=== PATIENT | male | born 1965 | race Caucasian/White ===

== ENCOUNTER 2023-04-13 04:09 | Inpatient (IN) | payer OTHER ==
[2023-04-13] MEDS ORDERED: AMOXICILLIN 500 MG CAPSULE (FP) PO ONE (05:50)
[2023-04-13] MEDS ORDERED: KETOROLAC TROMETHAMINE 30 MG/1 ML VIAL IVPUSH ONE (05:50)
[2023-04-13] MEDS ORDERED: AMOX TR/POT CLAV 500MG/125MG TABLETS (FP) ONE (06:11)
[2023-04-13] MEDS ORDERED: KETOROLAC TROMETHAMINE 30 MG/1 ML VIAL ONE (06:11)
[2023-04-13 08:21] LABS: HEMATOCRIT 29.1 % (35.4-49); MCH 29.4 pg (25.7-33.7); MCHC 34.3 g/dl (32.0-35.9); MEAN CELL VOLUME 85.8 fl (80-96); MEAN PLT VOLUME 7.2 fl (7.5-11.1); PLATELET COUNT 174 10^3/uL (134-434); RBC 3.39 M/mm3 (4.00-5.60); RDW 14.6 % (11.9-15.9); WHITE BLOOD COUNT 8.3 K/mm3 (4.0-10.0)
[2023-04-13 08:35] LABS: INR 1.33 (0.83-1.09); PROTHROMBIN TIME (PATIENT) 15.4 SEC (9.7-13.0)
[2023-04-13 09:22] LABS: ANISOCYTOSIS 0; MACROCYTOSIS 0
[2023-04-13 10:34] LABS: EPITHELIAL CELLS 9 /hpf
[2023-04-13 10:35] LABS: AMORP PHOS NONE SEEN /hpf (NONE SEEN); AMORP URATES NONE SEEN /hpf (NONE SEEN); CALCIUM OXALATE CRYSTALS NONE SEEN /hpf (NONE SEEN); TRIPLE PHOSPHATE CRYSTAL NONE SEEN /hpf (NONE SEEN); URIC ACID CRYSTALS NONE SEEN /hpf (NONE SEEN); URINE HYALINE CAST 0-1 /lpf
[2023-04-13] MEDS: CEFAZOLIN 1 GM in DEXTROSE 5%-WATER - 50 ML IVPB SCH ×2 (10:53→17:34)
[2023-04-13] MEDS: ACETAMINOPHEN 325 MG TABLET (FP) PO SCH ×3 (10:54→21:36)
[2023-04-13] MEDS: ENOXAPARIN NA (PORCINE) 40 MG/0.4 ML DISP.SYRIN SQ SCH ×2 (10:54→12:07)
[2023-04-13 11:19] LABS: ALBUMIN 3.2 g/dl (3.4-5.0); BILIRUBIN,TOTAL 0.8 mg/dL (0.2-1); BLOOD UREA NITROGEN 32.5 mg/dL (7-18); CALCIUM 12.9 mg/dL (8.5-10.1); CREATININE 1.7 mg/dL (0.55-1.3); POTASSIUM 4.1 mmol/L (3.5-5.1); TOT PROT 6.5 g/dl (6.4-8.2)
[2023-04-13] MEDS: MAG HYDROX/ALH/SMC/DPHA/LIDO 240 ML MOUTHWASH MM SCH ×3 (12:56→23:30)
[2023-04-13] MEDS: LACTATED RINGERS SOLUTION 1,000 ML/1,000 ML INFUS.BAG IV SCH ×2 (12:57→23:30)
[2023-04-13] MEDS: IBUPROFEN 600 MG TABLET (FP) PO SCH ×3 (12:57→23:30)
[2023-04-13 15:54] LABS: PHENCYCLIDINE,URINE NEGATIVE (NEGATIVE); URINE BARBITURATES NEGATIVE (NEGATIVE); URINE BENZODIAZEPINES NEGATIVE (NEGATIVE)
[2023-04-13 16:09] LABS: COCAINE, UR POSITIVE (NEGATIVE); METHADONE, UR NEGATIVE (NEGATIVE); OPIATES, URI NEGATIVE (NEGATIVE); URINE AMPHETAMINES NEGATIVE (NEGATIVE)
[2023-04-13] MEDS ORDERED: REFRIGERATED ANITBIOTICS ONE (21:29)
[2023-04-14] MEDS: CEFAZOLIN 1 GM in DEXTROSE 5%-WATER - 50 ML IVPB SCH ×3 (01:10→17:37)
[2023-04-14] MEDS: IBUPROFEN 600 MG TABLET (FP) PO SCH ×3 (05:55→17:35)
[2023-04-14] MEDS: MAG HYDROX/ALH/SMC/DPHA/LIDO 240 ML MOUTHWASH MM SCH ×3 (06:10→17:36)
[2023-04-14] MEDS: ACETAMINOPHEN 325 MG TABLET (FP) PO SCH (06:11)
[2023-04-14 07:06] LABS: CARCINOEMBRYONIC ANTIGEN 4.2 ng/mL (0.0-4.7)
[2023-04-14 08:24] LABS: HEMOGLOBIN 9.3 G/dL (11.7-16.9); MCH 28.9 pg (25.7-33.7); MEAN CELL VOLUME 87.4 fl (80-96); MEAN PLT VOLUME 7.7 fl (7.5-11.1); PLATELET COUNT 134.4 10^3/uL (134-434); RDW 15.7 % (11.9-15.9); WHITE BLOOD COUNT 4.3 10^3/uL (4.0-10.8)
[2023-04-14 08:59] LABS: BLOOD UREA NITROGEN 37.2 mg/dl (7-18); CALCIUM 11.3 mg/dl (8.5-10.1); CREATININE 1.7 mg/dl (0.6-1.3); POTASSIUM 3.7 mmol/L (3.5-5.1)
[2023-04-14] MEDS: traMADol HCL 50 MG TABLET PO PRN ×2 (10:18→21:57)
[2023-04-14] MEDS: CHOLECALCIFEROL (VIT D3) 1,000 UNIT (25 MCG) TABLET PO SCH (10:19)
[2023-04-14] MEDS: NICOTINE 7 MG/24 HOURS TOPICAL PATCH TD SCH (10:19)
[2023-04-14] MEDS: ENOXAPARIN NA (PORCINE) 40 MG/0.4 ML DISP.SYRIN SQ SCH (12:01)
[2023-04-14] MEDS: LIDOCAINE 5% TOPICAL PATCH TP SCH (13:34)
[2023-04-14] MEDS ORDERED: REFRIGERATED ANITBIOTICS ONE ×3 (14:38→21:33)
[2023-04-14] MEDS: LIDOCAINE PATCH REMOVAL MC SCH (22:52)
[2023-04-15] MEDS: MAG HYDROX/ALH/SMC/DPHA/LIDO 240 ML MOUTHWASH MM SCH ×3 (00:52→16:21)
[2023-04-15] MEDS: IBUPROFEN 600 MG TABLET (FP) PO SCH ×3 (02:17→16:21)
[2023-04-15] MEDS: CEFAZOLIN 1 GM in DEXTROSE 5%-WATER - 50 ML IVPB SCH ×3 (02:17→19:00)
[2023-04-15 08:18] LABS: INR 1.3 (0.83-1.09)
[2023-04-15 08:24] LABS: HEMATOCRIT 28.1 % (35.4-49); HEMOGLOBIN 9.4 G/dL (11.7-16.9); MCH 29.4 pg (25.7-33.7); MCHC 33.4 g/dl (32.0-35.9); MEAN CELL VOLUME 88.1 fl (80-96); MEAN PLT VOLUME 7.9 fl (7.5-11.1); PLATELET COUNT 164.3 10^3/uL (134-434); RBC 3.19 10^6/uL (4.00-5.60); RDW 15.9 % (11.9-15.9); WHITE BLOOD COUNT 5.9 10^3/uL (4.0-10.8)
[2023-04-15 09:04] LABS: BLOOD UREA NITROGEN 35.4 mg/dl (7-18); CALCIUM 11.5 mg/dl (8.5-10.1); CREATININE 1.5 mg/dl (0.6-1.3); POTASSIUM 4.2 mmol/L (3.5-5.1)
[2023-04-15] MEDS: NICOTINE 7 MG/24 HOURS TOPICAL PATCH TD SCH (09:13)
[2023-04-15] MEDS: CHOLECALCIFEROL (VIT D3) 1,000 UNIT (25 MCG) TABLET PO SCH (09:13)
[2023-04-15] MEDS: LIDOCAINE 5% TOPICAL PATCH TP SCH (09:13)
[2023-04-15] MEDS ORDERED: MIDAZOLAM HCL 2 MG/2 ML SINGLE DOSE VIAL ONE (09:33)
[2023-04-15] MEDS ORDERED: FENTANYL CITRATE/PF 50 MCG/ML VIAL ONE (09:34)
[2023-04-15] MEDS: MIDAZOLAM HCL 2 MG/2 ML SINGLE DOSE VIAL IVPB SCH ×2 (12:00→12:10)
[2023-04-15] MEDS: FENTANYL CITRATE/PF 50 MCG/ML VIAL IVPB SCH ×2 (12:00→12:10)
[2023-04-15] MEDS ORDERED: SODIUM CHLORIDE 500 ML IV ONE (13:45)
[2023-04-15] MEDS ORDERED: SODIUM CHLORIDE 1,000 ML IV SCH (14:30)
[2023-04-15] MEDS: SODIUM CHLORIDE 1,000 ML IV SCH (15:33)
[2023-04-15] MEDS ORDERED: ACETAMINOPHEN 325 MG TABLET (FP) ONE (17:21)
[2023-04-15] MEDS: ACETAMINOPHEN 325 MG TABLET (FP) PO PRN (17:27)
[2023-04-15] MEDS ORDERED: ceFAZolin SODIUM 1 GM VIAL ONE (19:07)
[2023-04-15] MEDS: LIDOCAINE PATCH REMOVAL MC SCH (22:07)
[2023-04-16] MEDS: traMADol HCL 50 MG TABLET PO PRN ×4 (01:32→23:22)
[2023-04-16] MEDS: CEFAZOLIN 1 GM in DEXTROSE 5%-WATER - 50 ML IVPB SCH ×3 (01:42→17:43)
[2023-04-16] MEDS: MAG HYDROX/ALH/SMC/DPHA/LIDO 240 ML MOUTHWASH MM SCH ×3 (02:28→18:23)
[2023-04-16] MEDS: NICOTINE 7 MG/24 HOURS TOPICAL PATCH TD SCH (09:30)
[2023-04-16] MEDS: CHOLECALCIFEROL (VIT D3) 1,000 UNIT (25 MCG) TABLET PO SCH (09:36)
[2023-04-16] MEDS ORDERED: TAMSULOSIN HCL 0.4 MG CAP PO ONE (10:10)
[2023-04-16] MEDS: FINASTERIDE 5 MG TABLET (FP) PO SCH (12:04)
[2023-04-16 12:31] LABS: HEMATOCRIT 27.5 % (35.4-49); HEMOGLOBIN 9.6 GM/dL (11.7-16.9); MCH 29.9 pg (25.7-33.7); MCHC 34.8 g/dl (32.0-35.9); MEAN CELL VOLUME 85.8 fl (80-96); MEAN PLT VOLUME 6.8 fl (7.5-11.1); PLATELET COUNT 190 10^3/uL (134-434); RDW 14.8 % (11.9-15.9); WHITE BLOOD COUNT 7.6 K/mm3 (4.0-10.0)
[2023-04-16 13:02] LABS: ANISOCYTOSIS 0; HELMET CELLS 0; HOWELL-JOLLY BODIES 0; MACROCYTOSIS 0; OVALOCYTE 0; ROULEAU 0; SICKELED CELLS 0; TARGET CELLS 0; TEAR DROP CELLS 0; TOXIC GRANULATION 0
[2023-04-16 13:28] LABS: POTASSIUM 3.7 mmol/L (3.5-5.1)
[2023-04-16 13:30] LABS: BLOOD UREA NITROGEN 27.4 mg/dL (7-18)
[2023-04-16 13:34] LABS: BILIRUBIN,TOTAL 0.4 mg/dL (0.2-1); CREATININE 1.5 mg/dL (0.55-1.3); TOT PROT 6.4 g/dl (6.4-8.2)
[2023-04-16 13:45] LABS: CALCIUM 10.9 mg/dL (8.5-10.1)
[2023-04-16] MEDS: SODIUM CHLORIDE 1,000 ML IV SCH (14:34)
[2023-04-16] MEDS: LIDOCAINE 5% TOPICAL PATCH TP SCH (14:35)
[2023-04-16 18:12] LABS: FREE KAPPA,SERUM 27.2 mg/L (3.3-19.4)
[2023-04-16] MEDS: LIDOCAINE PATCH REMOVAL MC SCH (22:02)
[2023-04-17] VITALS: BMI 25.8
[2023-04-17] MEDS: MAG HYDROX/ALH/SMC/DPHA/LIDO 240 ML MOUTHWASH MM SCH ×4 (00:22→18:24)
[2023-04-17] MEDS: CEFAZOLIN 1 GM in DEXTROSE 5%-WATER - 50 ML IVPB SCH ×3 (01:00→18:21)
[2023-04-17] MEDS: ACETAMINOPHEN 325 MG TABLET (FP) PO PRN ×2 (01:11→18:22)
[2023-04-17] MEDS: SODIUM CHLORIDE 1,000 ML IV SCH ×2 (03:36→14:44)
[2023-04-17] MEDS: traMADol HCL 50 MG TABLET PO PRN ×3 (06:06→21:44)
[2023-04-17 07:45] LABS: HEMOGLOBIN 8.7 GM/dL (11.7-16.9); MCH 29.7 pg (25.7-33.7); MCHC 34.6 g/dl (32.0-35.9); MEAN CELL VOLUME 85.6 fl (80-96); MEAN PLT VOLUME 7.1 fl (7.5-11.1); PLATELET COUNT 152 10^3/uL (134-434); RBC 2.92 M/mm3 (4.00-5.60); RDW 14.8 % (11.9-15.9); WHITE BLOOD COUNT 7.4 K/mm3 (4.0-10.0)
[2023-04-17 08:19] LABS: POTASSIUM 4.2 mmol/L (3.5-5.1)
[2023-04-17 08:55] LABS: CALCIUM 11.1 mg/dL (8.5-10.1); PHOSPHOROUS 3.2 mg/dL (2.5-4.9)
[2023-04-17 08:56] LABS: ALBUMIN 2.7 g/dl (3.4-5.0); BILIRUBIN,TOTAL 0.3 mg/dL (0.2-1); BLOOD UREA NITROGEN 24.4 mg/dL (7-18); MAGNESIUM 1.8 mg/dL (1.8-2.4); TOT PROT 5.7 g/dl (6.4-8.2)
[2023-04-17 08:59] LABS: CREATININE 1.4 mg/dL (0.55-1.3)
[2023-04-17 09:10] LABS: ANISOCYTOSIS 0; MACROCYTOSIS 0
[2023-04-17] MEDS: FINASTERIDE 5 MG TABLET (FP) PO SCH (10:27)
[2023-04-17] MEDS: CHOLECALCIFEROL (VIT D3) 1,000 UNIT (25 MCG) TABLET PO SCH (10:27)
[2023-04-17] MEDS: ENOXAPARIN NA (PORCINE) 40 MG/0.4 ML DISP.SYRIN SQ SCH (10:27)
[2023-04-17] MEDS: LIDOCAINE 5% TOPICAL PATCH TP SCH (10:27)
[2023-04-17] MEDS: NICOTINE 7 MG/24 HOURS TOPICAL PATCH TD SCH (10:27)
[2023-04-17] MEDS ORDERED: BENZOCAINE/MENTH/CETYLPYRD CL 1 EACH LOZENGE MM PRN (11:34)
[2023-04-17] MEDS: LIDOCAINE PATCH REMOVAL MC SCH (22:30)
[2023-04-18] MEDS: MAG HYDROX/ALH/SMC/DPHA/LIDO 240 ML MOUTHWASH MM SCH ×5 (00:07→21:38)
[2023-04-18] MEDS: CEFAZOLIN 1 GM in DEXTROSE 5%-WATER - 50 ML IVPB SCH ×3 (01:14→17:30)
[2023-04-18] MEDS: ACETAMINOPHEN 325 MG TABLET (FP) PO PRN ×2 (01:32→09:46)
[2023-04-18] MEDS: SODIUM CHLORIDE 1,000 ML IV SCH ×2 (01:34→15:56)
[2023-04-18] MEDS: traMADol HCL 50 MG TABLET PO PRN ×4 (05:40→23:06)
[2023-04-18 08:19] LABS: HEMATOCRIT 25.5 % (35.4-49); HEMOGLOBIN 9.2 GM/dL (11.7-16.9); MCH 30.1 pg (25.7-33.7); MCHC 35.9 g/dl (32.0-35.9); MEAN PLT VOLUME 7.1 fl (7.5-11.1); PLATELET COUNT 159 10^3/uL (134-434); RBC 3.04 M/mm3 (4.00-5.60); RDW 14.9 % (11.9-15.9); WHITE BLOOD COUNT 9.2 K/mm3 (4.0-10.0)
[2023-04-18 08:37] LABS: POTASSIUM 3.9 mmol/L (3.5-5.1)
[2023-04-18 08:43] LABS: ALBUMIN 2.6 g/dl (3.4-5.0); MAGNESIUM 1.7 mg/dL (1.8-2.4)
[2023-04-18 08:46] LABS: CREATININE 1.4 mg/dL (0.55-1.3)
[2023-04-18 08:49] LABS: BILIRUBIN,TOTAL 0.5 mg/dL (0.2-1); TOT PROT 5.7 g/dl (6.4-8.2)
[2023-04-18 10:17] LABS: ANISOCYTOSIS 2+; MACROCYTOSIS 0; OVALOCYTE 2+; TEAR DROP CELLS 2+
[2023-04-18] MEDS: ENOXAPARIN NA (PORCINE) 40 MG/0.4 ML DISP.SYRIN SQ SCH (11:06)
[2023-04-18] MEDS: CHOLECALCIFEROL (VIT D3) 400 UNIT (10 MCG) TABLET PO SCH (11:06)
[2023-04-18] MEDS: FINASTERIDE 5 MG TABLET (FP) PO SCH (11:06)
[2023-04-18] MEDS: NICOTINE 7 MG/24 HOURS TOPICAL PATCH TD SCH (11:07)
[2023-04-18] MEDS: LIDOCAINE 5% TOPICAL PATCH TP SCH (11:10)
[2023-04-18] MEDS ORDERED: ACETAMINOPHEN 1000 MG/100 ML BAG IVPB PRN (15:50)
[2023-04-19] MEDS: CEFAZOLIN 1 GM in DEXTROSE 5%-WATER - 50 ML IVPB SCH ×3 (01:55→17:41)
[2023-04-19] MEDS: MAG HYDROX/ALH/SMC/DPHA/LIDO 240 ML MOUTHWASH MM SCH ×5 (06:58→17:42)
[2023-04-19] MEDS: LIDOCAINE PATCH REMOVAL MC SCH (06:58)
[2023-04-19] MEDS: traMADol HCL 50 MG TABLET PO PRN ×3 (07:00→23:00)
[2023-04-19 08:11] LABS: HEMATOCRIT 25.3 % (35.4-49); HEMOGLOBIN 8.9 GM/dL (11.7-16.9); MCH 29.5 pg (25.7-33.7); MCHC 35.4 g/dl (32.0-35.9); MEAN CELL VOLUME 83.5 fl (80-96); MEAN PLT VOLUME 7.4 fl (7.5-11.1); PLATELET COUNT 164 10^3/uL (134-434); POTASSIUM 3.7 mmol/L (3.5-5.1); RBC 3.03 M/mm3 (4.00-5.60); RDW 15.3 % (11.9-15.9); WHITE BLOOD COUNT 8.8 K/mm3 (4.0-10.0)
[2023-04-19 08:15] LABS: CALCIUM 10.5 mg/dL (8.5-10.1)
[2023-04-19 08:17] LABS: ALBUMIN 2.6 g/dl (3.4-5.0); MAGNESIUM 1.7 mg/dL (1.8-2.4)
[2023-04-19 08:19] LABS: CREATININE 1.2 mg/dL (0.55-1.3); PHOSPHOROUS 2.6 mg/dL (2.5-4.9)
[2023-04-19 08:21] LABS: BILIRUBIN,TOTAL 0.4 mg/dL (0.2-1); TOT PROT 5.6 g/dl (6.4-8.2)
[2023-04-19] MEDS: FINASTERIDE 5 MG TABLET (FP) PO SCH (09:39)
[2023-04-19] MEDS: CHOLECALCIFEROL (VIT D3) 400 UNIT (10 MCG) TABLET PO SCH (09:39)
[2023-04-19] MEDS: ENOXAPARIN NA (PORCINE) 40 MG/0.4 ML DISP.SYRIN SQ SCH (09:39)
[2023-04-19] MEDS: NICOTINE 7 MG/24 HOURS TOPICAL PATCH TD SCH (09:39)
[2023-04-19] MEDS: LIDOCAINE 5% TOPICAL PATCH TP SCH (10:29)
[2023-04-19] MEDS ORDERED: MAGNESIUM SULF 50% (8.12 MEQ/2 ML-1 GM VIAL) IVPB ONE (12:40)
[2023-04-19 15:08] LABS: N-TERMINAL BNP 784.4 pg/ml (5-125)
[2023-04-19] MEDS: SODIUM CHLORIDE 1,000 ML IV SCH (17:41)
[2023-04-20] MEDS: traMADol HCL 50 MG TABLET PO PRN ×4 (04:00→22:48)
[2023-04-20] MEDS: CEFAZOLIN 1 GM in DEXTROSE 5%-WATER - 50 ML IVPB SCH ×3 (04:16→18:11)
[2023-04-20] MEDS: MAG HYDROX/ALH/SMC/DPHA/LIDO 240 ML MOUTHWASH MM SCH ×5 (04:18→23:50)
[2023-04-20] MEDS: LIDOCAINE PATCH REMOVAL MC SCH ×2 (04:19→22:52)
[2023-04-20 08:34] LABS: HEMATOCRIT 24.7 % (35.4-49); HEMOGLOBIN 8.6 GM/dL (11.7-16.9); MCH 29.7 pg (25.7-33.7); MEAN CELL VOLUME 84.7 fl (80-96); MEAN PLT VOLUME 7.1 fl (7.5-11.1); PLATELET COUNT 170 10^3/uL (134-434); RBC 2.91 M/mm3 (4.00-5.60); RDW 15.2 % (11.9-15.9)
[2023-04-20 08:51] LABS: POTASSIUM 3.7 mmol/L (3.5-5.1)
[2023-04-20 08:55] LABS: ALBUMIN 2.4 g/dl (3.4-5.0); CALCIUM 10.3 mg/dL (8.5-10.1)
[2023-04-20 08:56] LABS: BLOOD UREA NITROGEN 23.5 mg/dL (7-18); MAGNESIUM 1.6 mg/dL (1.8-2.4)
[2023-04-20 08:59] LABS: CREATININE 1.1 mg/dL (0.55-1.3); PHOSPHOROUS 2.6 mg/dL (2.5-4.9)
[2023-04-20 09:00] LABS: BILIRUBIN,TOTAL 0.4 mg/dL (0.2-1); TOT PROT 5.4 g/dl (6.4-8.2)
[2023-04-20] MEDS: ENOXAPARIN NA (PORCINE) 40 MG/0.4 ML DISP.SYRIN SQ SCH (10:02)
[2023-04-20] MEDS: CHOLECALCIFEROL (VIT D3) 400 UNIT (10 MCG) TABLET PO SCH (10:03)
[2023-04-20] MEDS: FINASTERIDE 5 MG TABLET (FP) PO SCH (10:03)
[2023-04-20] MEDS: NICOTINE 7 MG/24 HOURS TOPICAL PATCH TD SCH (10:07)
[2023-04-20] MEDS: LIDOCAINE 5% TOPICAL PATCH TP SCH (10:10)
[2023-04-20] MEDS ORDERED: POTASSIUM CHLORIDE ORAL LIQUID 20 MEQ/15 ML PO ONE (15:15)
[2023-04-20] MEDS ORDERED: FUROSEMIDE 40 MG/4 ML INJECTABLE VIAL IVPUSH ONE (15:15)
[2023-04-20] MEDS ORDERED: SODIUM CHLORIDE 1,000 ML IV SCH (15:15)
[2023-04-21] MEDS: CEFAZOLIN 1 GM in DEXTROSE 5%-WATER - 50 ML IVPB SCH ×3 (03:25→18:08)
[2023-04-21] MEDS: traMADol HCL 50 MG TABLET PO PRN ×4 (04:40→23:02)
[2023-04-21] MEDS: MAG HYDROX/ALH/SMC/DPHA/LIDO 240 ML MOUTHWASH MM SCH ×3 (06:49→18:08)
[2023-04-21 07:52] LABS: HEMATOCRIT 24.1 % (35.4-49); HEMOGLOBIN 8.7 GM/dL (11.7-16.9); MCH 30.4 pg (25.7-33.7); MCHC 36.2 g/dl (32.0-35.9); MEAN CELL VOLUME 83.9 fl (80-96); MEAN PLT VOLUME 7.2 fl (7.5-11.1); PLATELET COUNT 168 10^3/uL (134-434); RBC 2.87 M/mm3 (4.00-5.60); RDW 15.4 % (11.9-15.9); WHITE BLOOD COUNT 8.3 K/mm3 (4.0-10.0)
[2023-04-21 08:14] LABS: POTASSIUM 3.6 mmol/L (3.5-5.1)
[2023-04-21 08:17] LABS: ALBUMIN 2.4 g/dl (3.4-5.0); BLOOD UREA NITROGEN 25.8 mg/dL (7-18); CALCIUM 10.2 mg/dL (8.5-10.1); MAGNESIUM 1.5 mg/dL (1.8-2.4)
[2023-04-21 08:20] LABS: CREATININE 1.2 mg/dL (0.55-1.3); PHOSPHOROUS 2.9 mg/dL (2.5-4.9)
[2023-04-21 08:22] LABS: BILIRUBIN,TOTAL 0.4 mg/dL (0.2-1); TOT PROT 5.4 g/dl (6.4-8.2)
[2023-04-21 08:37] LABS: ANISOCYTOSIS 1+
[2023-04-21] MEDS: CHOLECALCIFEROL (VIT D3) 400 UNIT (10 MCG) TABLET PO SCH (09:58)
[2023-04-21] MEDS: FINASTERIDE 5 MG TABLET (FP) PO SCH (09:58)
[2023-04-21] MEDS: ENOXAPARIN NA (PORCINE) 40 MG/0.4 ML DISP.SYRIN SQ SCH (10:01)
[2023-04-21] MEDS: NICOTINE 7 MG/24 HOURS TOPICAL PATCH TD SCH (10:01)
[2023-04-21] MEDS: LIDOCAINE 4% PATCH TP SCH (10:50)
[2023-04-21] MEDS ORDERED: LIDOCAINE 5% TOPICAL PATCH TP SCH (11:00)
[2023-04-21] MEDS: LIDOCAINE 5% TOPICAL PATCH TP SCH (11:10)
[2023-04-21] MEDS ORDERED: MAGNESIUM SULF 50% (8.12 MEQ/2 ML-1 GM VIAL) IVPB ONE (11:51)
[2023-04-21] MEDS ORDERED: FUROSEMIDE 40 MG/4 ML INJECTABLE VIAL IVPUSH ONE ×2 (14:09→20:00)
[2023-04-21] MEDS ORDERED: SODIUM CHLORIDE 1,000 ML IV SCH (14:09)
[2023-04-21] MEDS: SODIUM CHLORIDE 0.45% 1,000 ML IV SCH (14:52)
[2023-04-21] MEDS: LIDOCAINE PATCH REMOVAL MC SCH (21:10)
[2023-04-22] MEDS: MAG HYDROX/ALH/SMC/DPHA/LIDO 240 ML MOUTHWASH MM SCH ×3 (00:19→11:57)
[2023-04-22] MEDS: CEFAZOLIN 1 GM in DEXTROSE 5%-WATER - 50 ML IVPB SCH ×2 (03:18→09:35)
[2023-04-22] MEDS: FUROSEMIDE 40 MG TABLET (FP) PO SCH ×2 (06:01→13:31)
[2023-04-22] MEDS: traMADol HCL 50 MG TABLET PO PRN ×2 (06:01→12:28)
[2023-04-22 07:00] LABS: HEMATOCRIT 24.7 % (35.4-49); HEMOGLOBIN 8.6 GM/dL (11.7-16.9); MCH 29.7 pg (25.7-33.7); MCHC 34.9 g/dl (32.0-35.9); MEAN CELL VOLUME 84.9 fl (80-96); MEAN PLT VOLUME 7.4 fl (7.5-11.1); PLATELET COUNT 180 10^3/uL (134-434); RBC 2.91 M/mm3 (4.00-5.60); RDW 15.4 % (11.9-15.9); WHITE BLOOD COUNT 8.7 K/mm3 (4.0-10.0)
[2023-04-22 07:10] LABS: POTASSIUM 3.4 mmol/L (3.5-5.1)
[2023-04-22 07:18] LABS: ALBUMIN 2.5 g/dl (3.4-5.0); BLOOD UREA NITROGEN 33.4 mg/dL (7-18); PHOSPHOROUS 2.9 mg/dL (2.5-4.9)
[2023-04-22 07:19] LABS: BILIRUBIN,TOTAL 0.3 mg/dL (0.2-1); TOT PROT 5.3 g/dl (6.4-8.2)
[2023-04-22 07:20] LABS: MAGNESIUM 1.8 mg/dL (1.8-2.4)
[2023-04-22 07:21] LABS: CREATININE 1.2 mg/dL (0.55-1.3)
[2023-04-22] MEDS: ENOXAPARIN NA (PORCINE) 40 MG/0.4 ML DISP.SYRIN SQ SCH (09:23)
[2023-04-22] MEDS: NICOTINE 7 MG/24 HOURS TOPICAL PATCH TD SCH (09:23)
[2023-04-22] MEDS: FINASTERIDE 5 MG TABLET (FP) PO SCH (09:35)
[2023-04-22] MEDS: LIDOCAINE 4% PATCH TP SCH (09:35)
[2023-04-22] MEDS: CHOLECALCIFEROL (VIT D3) 400 UNIT (10 MCG) TABLET PO SCH (09:36)
[2023-04-22 11:29] LABS: ANISOCYTOSIS 0; HELMET CELLS 0; HOWELL-JOLLY BODIES 0; MACROCYTOSIS 0; OVALOCYTE 0; ROULEAU 0; SICKELED CELLS 0; TARGET CELLS 0; TEAR DROP CELLS 0; TOXIC GRANULATION 0
[2023-04-22] MEDS ORDERED: KCL 10 MEQ IVPB 10 MEQ/100 ML INFUS.BAG IVPB SCH (14:15)
[2023-04-22] MEDS ORDERED: FENTANYL CITRATE/PF 50 MCG/ML VIAL ONE (16:10)
[2023-04-22] MEDS ORDERED: MIDAZOLAM HCL 2 MG/2 ML SINGLE DOSE VIAL ONE (16:11)
[2023-04-22] MEDS ORDERED: ceFAZolin SODIUM 1 GM VIAL IVPB ONE (16:42)
[2023-04-22] MEDS ORDERED: POTASSIUM CHLORIDE ORAL LIQUID 20 MEQ/15 ML PO ONE ×2 (17:18→20:00)
[2023-04-22] MEDS ORDERED: SODIUM CHLORIDE 0.45% 1,000 ML IV SCH ×2 (17:33→18:36)
[2023-04-22] MEDS ORDERED: traMADol HCL 50 MG TABLET PO PRN ×2 (17:33→18:36)
[2023-04-22] MEDS ORDERED: BENZOCAINE/MENTH/CETYLPYRD CL 1 EACH LOZENGE MM PRN ×2 (17:33→18:36)
[2023-04-22] MEDS ORDERED: MAG HYDROX/ALH/SMC/DPHA/LIDO 240 ML MOUTHWASH MM SCH (18:00)
[2023-04-22] MEDS ORDERED: ONDANSETRON 4 MG/2 ML VIAL IVPUSH PRN (18:13)
[2023-04-22] MEDS ORDERED: LACTATED RINGERS SOLUTION 1,000 ML IV SCH (18:15)
[2023-04-22] MEDS ORDERED: LIDOCAINE PATCH REMOVAL MC SCH (22:00)
[2023-04-22] MEDS: KCL 10 MEQ IVPB 10 MEQ/100 ML INFUS.BAG IVPB SCH ×2 (22:15→22:16)
[2023-04-23] MEDS: LIDOCAINE PATCH REMOVAL MC SCH ×2 (01:16→22:50)
[2023-04-23] MEDS ORDERED: CEFAZOLIN 1 GM in DEXTROSE 5%-WATER - 50 ML IVPB SCH (02:00)
[2023-04-23] MEDS: CEFAZOLIN 1 GM in DEXTROSE 5%-WATER - 50 ML IVPB SCH ×3 (02:13→17:39)
[2023-04-23] MEDS: MAG HYDROX/ALH/SMC/DPHA/LIDO 240 ML MOUTHWASH MM SCH ×4 (02:38→19:09)
[2023-04-23] MEDS ORDERED: FUROSEMIDE 40 MG TABLET (FP) PO SCH (06:00)
[2023-04-23] MEDS: FUROSEMIDE 40 MG TABLET (FP) PO SCH ×2 (06:27→16:50)
[2023-04-23] MEDS ORDERED: traMADol HCL 50 MG TABLET PO PRN (07:59)
[2023-04-23] MEDS: SODIUM CHLORIDE 0.45% 1,000 ML IV SCH (08:48)
[2023-04-23 09:28] LABS: BASO % 0.6 % (0-2.0); EOS % 0.7 % (0-4.5); HEMATOCRIT 27.6 % (35.4-49); HEMOGLOBIN 9.4 GM/dL (11.7-16.9); LYMPH % 12.3 % (8-40); MCH 29.4 pg (25.7-33.7); MCHC 34.1 g/dl (32.0-35.9); MEAN CELL VOLUME 86.2 fl (80-96); MEAN PLT VOLUME 7.4 fl (7.5-11.1); MONO % 6.6 % (3.8-10.2); NEUT % 79.8 % (42.8-82.8); PLATELET COUNT 215 10^3/uL (134-434); RDW 15.8 % (11.9-15.9); WHITE BLOOD COUNT 13.2 K/mm3 (4.0-10.0)
[2023-04-23 09:49] LABS: POTASSIUM 3.8 mmol/L (3.5-5.1)
[2023-04-23 09:54] LABS: CALCIUM 10.1 mg/dL (8.5-10.1)
[2023-04-23 09:55] LABS: ALBUMIN 2.7 g/dl (3.4-5.0); BLOOD UREA NITROGEN 29.9 mg/dL (7-18); MAGNESIUM 1.7 mg/dL (1.8-2.4)
[2023-04-23 09:58] LABS: CREATININE 1.4 mg/dL (0.55-1.3); PHOSPHOROUS 3.2 mg/dL (2.5-4.9)
[2023-04-23 09:59] LABS: BILIRUBIN,TOTAL 0.4 mg/dL (0.2-1)
[2023-04-23] MEDS ORDERED: ENOXAPARIN NA (PORCINE) 40 MG/0.4 ML DISP.SYRIN SQ SCH (10:00)
[2023-04-23] MEDS ORDERED: LIDOCAINE 4% PATCH TP SCH (10:00)
[2023-04-23] MEDS ORDERED: NICOTINE 7 MG/24 HOURS TOPICAL PATCH TD SCH ×3 (10:00→10:30)
[2023-04-23] MEDS ORDERED: FINASTERIDE 5 MG TABLET (FP) PO SCH (10:00)
[2023-04-23] MEDS ORDERED: CHOLECALCIFEROL (VIT D3) 400 UNIT (10 MCG) TABLET PO SCH (10:00)
[2023-04-23] MEDS: ENOXAPARIN NA (PORCINE) 40 MG/0.4 ML DISP.SYRIN SQ SCH (10:08)
[2023-04-23] MEDS: FINASTERIDE 5 MG TABLET (FP) PO SCH (10:09)
[2023-04-23] MEDS: CHOLECALCIFEROL (VIT D3) 400 UNIT (10 MCG) TABLET PO SCH (10:09)
[2023-04-23] MEDS: ACETAMINOPHEN 500 MG TABLET (FP) PO SCH ×3 (10:38→22:33)
[2023-04-23] MEDS: BICALUTAMIDE 50 MG TABLET (FP) PO SCH (10:39)
[2023-04-23] MEDS: NICOTINE 14 MG/24 HOURS TOPICAL PATCH TD SCH ×2 (10:39→10:43)
[2023-04-23] MEDS: LIDOCAINE 4% PATCH TP SCH (10:43)
[2023-04-23] MEDS ORDERED: MAGNESIUM 2GM/50ML STERILE WATER IVPB IVPB ONE ×3 (11:30→17:15)
[2023-04-23 11:47] LABS: ANISOCYTOSIS 0; HELMET CELLS 1+; MACROCYTOSIS 0
[2023-04-23] MEDS: oxyCODONE HCL 5 MG TABLET PO PRN (18:17)
[2023-04-24] MEDS: MAG HYDROX/ALH/SMC/DPHA/LIDO 240 ML MOUTHWASH MM SCH ×4 (00:36→18:47)
[2023-04-24] MEDS ORDERED: ceFAZolin SODIUM 1 GM VIAL ONE (01:36)
[2023-04-24] MEDS: CEFAZOLIN 1 GM in DEXTROSE 5%-WATER - 50 ML IVPB SCH ×3 (01:49→17:11)
[2023-04-24] MEDS: oxyCODONE HCL 5 MG TABLET PO PRN (03:43)
[2023-04-24] MEDS: FUROSEMIDE 40 MG TABLET (FP) PO SCH ×2 (06:31→14:26)
[2023-04-24] MEDS: ACETAMINOPHEN 500 MG TABLET (FP) PO SCH ×3 (06:31→21:31)
[2023-04-24 10:45] LABS: HEMATOCRIT 25.1 % (35.4-49); HEMOGLOBIN 8.6 GM/dL (11.7-16.9); MCH 29.7 pg (25.7-33.7); MCHC 34.5 g/dl (32.0-35.9); MEAN CELL VOLUME 86.1 fl (80-96); MEAN PLT VOLUME 7.4 fl (7.5-11.1); PLATELET COUNT 175 10^3/uL (134-434); RBC 2.91 M/mm3 (4.00-5.60); RDW 15.6 % (11.9-15.9); WHITE BLOOD COUNT 8.3 K/mm3 (4.0-10.0)
[2023-04-24] MEDS: CHOLECALCIFEROL (VIT D3) 400 UNIT (10 MCG) TABLET PO SCH (10:57)
[2023-04-24] MEDS: BICALUTAMIDE 50 MG TABLET (FP) PO SCH (10:57)
[2023-04-24] MEDS: ENOXAPARIN NA (PORCINE) 40 MG/0.4 ML DISP.SYRIN SQ SCH (10:57)
[2023-04-24] MEDS: LIDOCAINE 4% PATCH TP SCH (10:58)
[2023-04-24] MEDS: NICOTINE 14 MG/24 HOURS TOPICAL PATCH TD SCH (10:59)
[2023-04-24] MEDS: FINASTERIDE 5 MG TABLET (FP) PO SCH (10:59)
[2023-04-24 11:03] LABS: POTASSIUM 3.4 mmol/L (3.5-5.1)
[2023-04-24 11:08] LABS: ALBUMIN 2.7 g/dl (3.4-5.0); CALCIUM 9.5 mg/dL (8.5-10.1)
[2023-04-24 11:09] LABS: MAGNESIUM 2.2 mg/dL (1.8-2.4)
[2023-04-24 11:11] LABS: CREATININE 1.3 mg/dL (0.55-1.3)
[2023-04-24 11:12] LABS: PHOSPHOROUS 2.8 mg/dL (2.5-4.9); TOT PROT 5.7 g/dl (6.4-8.2)
[2023-04-24 11:15] LABS: ANISOCYTOSIS 0; HELMET CELLS 0; HOWELL-JOLLY BODIES 0; MACROCYTOSIS 0; OVALOCYTE 0; ROULEAU 0; SICKELED CELLS 0; TARGET CELLS 0; TEAR DROP CELLS 0; TOXIC GRANULATION 0
[2023-04-24 11:17] LABS: BILIRUBIN,TOTAL 0.3 mg/dL (0.2-1)
[2023-04-24] MEDS ORDERED: POTASSIUM CHLORIDE TABS 10 MEQ TABLET.ER (FP) PO ONE ×2 (15:00→17:15)
[2023-04-24] MEDS ORDERED: SODIUM CHLORIDE 1,000 ML IV SCH ×2 (15:15→16:46)
[2023-04-24] MEDS ORDERED: POTASSIUM CHLORIDE ORAL LIQUID 20 MEQ/15 ML PO NR ×2 (17:03→19:00)
[2023-04-24] MEDS ORDERED: POTASSIUM CHLORIDE ORAL LIQUID 20 MEQ/15 ML PO ONE (19:00)
[2023-04-24] MEDS: LIDOCAINE PATCH REMOVAL MC SCH (22:10)
[2023-04-25] MEDS: MAG HYDROX/ALH/SMC/DPHA/LIDO 240 ML MOUTHWASH MM SCH ×4 (00:49→18:26)
[2023-04-25] MEDS: CEFAZOLIN 1 GM in DEXTROSE 5%-WATER - 50 ML IVPB SCH ×2 (01:54→10:24)
[2023-04-25] MEDS: FUROSEMIDE 40 MG TABLET (FP) PO SCH (06:46)
[2023-04-25] MEDS: ACETAMINOPHEN 500 MG TABLET (FP) PO SCH ×3 (06:46→21:27)
[2023-04-25] MEDS ORDERED: INSULIN (NOVOLOG) ASPART 100 UNITS/ML 10ML VIAL ONE (06:58)
[2023-04-25] MEDS: BICALUTAMIDE 50 MG TABLET (FP) PO SCH (10:23)
[2023-04-25] MEDS: FINASTERIDE 5 MG TABLET (FP) PO SCH (10:24)
[2023-04-25] MEDS: CHOLECALCIFEROL (VIT D3) 400 UNIT (10 MCG) TABLET PO SCH (10:24)
[2023-04-25] MEDS: ENOXAPARIN NA (PORCINE) 40 MG/0.4 ML DISP.SYRIN SQ SCH (10:25)
[2023-04-25 10:35] LABS: POTASSIUM 3.9 mmol/L (3.5-5.1)
[2023-04-25] MEDS: oxyCODONE HCL 5 MG TABLET PO PRN ×2 (10:35→18:26)
[2023-04-25 10:37] LABS: CALCIUM 9.1 mg/dL (8.5-10.1)
[2023-04-25 10:38] LABS: ALBUMIN 2.8 g/dl (3.4-5.0); BLOOD UREA NITROGEN 28.9 mg/dL (7-18)
[2023-04-25 10:41] LABS: CREATININE 1.2 mg/dL (0.55-1.3)
[2023-04-25 10:43] LABS: BILIRUBIN,TOTAL 0.4 mg/dL (0.2-1)
[2023-04-25] MEDS: LIDOCAINE 4% PATCH TP SCH (10:46)
[2023-04-25] MEDS: NICOTINE 14 MG/24 HOURS TOPICAL PATCH TD SCH (10:47)
[2023-04-25] MEDS ORDERED: FERROUS SO4 325 MG TABLET (FP) PO SCH (12:30)
[2023-04-25] MEDS: LIDOCAINE PATCH REMOVAL MC SCH (21:52)
[2023-04-26] MEDS: MAG HYDROX/ALH/SMC/DPHA/LIDO 240 ML MOUTHWASH MM SCH ×4 (00:10→18:34)
[2023-04-26] MEDS: oxyCODONE HCL 5 MG TABLET PO PRN ×5 (00:13→22:52)
[2023-04-26] MEDS: ACETAMINOPHEN 500 MG TABLET (FP) PO SCH ×3 (05:22→22:12)
[2023-04-26] MEDS: FINASTERIDE 5 MG TABLET (FP) PO SCH (09:15)
[2023-04-26] MEDS: CHOLECALCIFEROL (VIT D3) 400 UNIT (10 MCG) TABLET PO SCH (09:15)
[2023-04-26] MEDS: ENOXAPARIN NA (PORCINE) 40 MG/0.4 ML DISP.SYRIN SQ SCH (09:15)
[2023-04-26] MEDS: BICALUTAMIDE 50 MG TABLET (FP) PO SCH (09:16)
[2023-04-26] MEDS: NICOTINE 14 MG/24 HOURS TOPICAL PATCH TD SCH (09:16)
[2023-04-26] MEDS: LIDOCAINE 4% PATCH TP SCH (09:16)
[2023-04-26 09:39] LABS: HEMATOCRIT 26.8 % (35.4-49); HEMOGLOBIN 9.1 GM/dL (11.7-16.9); MCH 29.4 pg (25.7-33.7); MEAN CELL VOLUME 86.6 fl (80-96); MEAN PLT VOLUME 7.4 fl (7.5-11.1); PLATELET COUNT 213 10^3/uL (134-434); RBC 3.09 M/mm3 (4.00-5.60)
[2023-04-26 10:01] LABS: IRON SERUM 69 ug/dL (50-175)
[2023-04-26 10:03] LABS: TOTAL IRON BINDING CAPACITY 185 ug/dL (250-450)
[2023-04-26 10:06] LABS: ANISOCYTOSIS 0; HELMET CELLS 0; HOWELL-JOLLY BODIES 0; MACROCYTOSIS 0; OVALOCYTE 0; ROULEAU 0; SICKELED CELLS 0; TARGET CELLS 0; TEAR DROP CELLS 0; TOXIC GRANULATION 0
[2023-04-26] MEDS: ENOXAPARIN NA (PORCINE) 80 MG/0.8 ML DISP.SYRIN SQ SCH ×2 (22:13→22:31)
[2023-04-26] MEDS: LIDOCAINE PATCH REMOVAL MC SCH (22:15)
[2023-04-27] MEDS: oxyCODONE HCL 5 MG TABLET PO PRN ×4 (04:09→22:51)
[2023-04-27] MEDS: MAG HYDROX/ALH/SMC/DPHA/LIDO 240 ML MOUTHWASH MM SCH ×4 (06:26→19:06)
[2023-04-27] MEDS: ACETAMINOPHEN 500 MG TABLET (FP) PO SCH ×3 (06:26→21:33)
[2023-04-27] MEDS: NICOTINE 14 MG/24 HOURS TOPICAL PATCH TD SCH (09:24)
[2023-04-27] MEDS: metoPROLOL SUCCINATE 25 MG TAB.SR.24H (FP) PO SCH (09:25)
[2023-04-27] MEDS: CHOLECALCIFEROL (VIT D3) 400 UNIT (10 MCG) TABLET PO SCH (09:25)
[2023-04-27] MEDS: LIDOCAINE 4% PATCH TP SCH (09:25)
[2023-04-27] MEDS: FINASTERIDE 5 MG TABLET (FP) PO SCH (09:25)
[2023-04-27] MEDS: ENOXAPARIN NA (PORCINE) 80 MG/0.8 ML DISP.SYRIN SQ SCH ×2 (09:26→21:32)
[2023-04-27] MEDS: BICALUTAMIDE 50 MG TABLET (FP) PO SCH (09:32)
[2023-04-27] MEDS: CEFTRIAXONE 1 GM in DEXTROSE 5%-WATER - 50 ML IVPB SCH (13:42)
[2023-04-27] MEDS ORDERED: FUROSEMIDE 40 MG TABLET (FP) PO ONE ×2 (16:37→17:15)
[2023-04-27] MEDS: LIDOCAINE PATCH REMOVAL MC SCH (23:32)
[2023-04-28] MEDS: MAG HYDROX/ALH/SMC/DPHA/LIDO 240 ML MOUTHWASH MM SCH ×4 (01:01→11:52)
[2023-04-28] MEDS: oxyCODONE HCL 5 MG TABLET PO PRN ×2 (03:08→07:45)
[2023-04-28] MEDS: ACETAMINOPHEN 500 MG TABLET (FP) PO SCH ×2 (05:56→13:57)
[2023-04-28 08:42] VITALS: BP 132/78; PULSE 94; RESP 16; TEMP 98.9
[2023-04-28] MEDS: NICOTINE 14 MG/24 HOURS TOPICAL PATCH TD SCH ×2 (09:05→09:12)
[2023-04-28] MEDS: CEFTRIAXONE 1 GM in DEXTROSE 5%-WATER - 50 ML IVPB SCH (09:05)
[2023-04-28] MEDS: FINASTERIDE 5 MG TABLET (FP) PO SCH (09:06)
[2023-04-28] MEDS: metoPROLOL SUCCINATE 25 MG TAB.SR.24H (FP) PO SCH (09:06)
[2023-04-28] MEDS: LIDOCAINE 4% PATCH TP SCH (09:06)
[2023-04-28] MEDS: CHOLECALCIFEROL (VIT D3) 400 UNIT (10 MCG) TABLET PO SCH (09:06)
[2023-04-28] MEDS: BICALUTAMIDE 50 MG TABLET (FP) PO SCH (09:07)
[2023-04-28] MEDS ORDERED: ENOXAPARIN NA (PORCINE) 40 MG/0.4 ML DISP.SYRIN SQ SCH (10:00)
[2023-04-28] MEDS ORDERED: traMADol HCL 50 MG TABLET PO PRN (11:19)
[2023-04-28 11:20] LABS: HEMATOCRIT 24.4 % (35.4-49); HEMOGLOBIN 8.4 GM/dL (11.7-16.9); MCHC 34.6 g/dl (32.0-35.9); MEAN CELL VOLUME 86.9 fl (80-96); PLATELET COUNT 206 10^3/uL (134-434); RBC 2.81 M/mm3 (4.00-5.60); RDW 16.7 % (11.9-15.9); WHITE BLOOD COUNT 4.2 K/mm3 (4.0-10.0)
[2023-04-28 11:32] LABS: POTASSIUM 4.1 mmol/L (3.5-5.1)
[2023-04-28 11:34] LABS: CALCIUM 7.8 mg/dL (8.5-10.1)
[2023-04-28 11:35] LABS: ALBUMIN 2.6 g/dl (3.4-5.0); BLOOD UREA NITROGEN 23.3 mg/dL (7-18)
[2023-04-28 11:38] LABS: CREATININE 1.1 mg/dL (0.55-1.3)
[2023-04-28] MEDS ORDERED: oxyCODONE HCL 5 MG TABLET PO PRN (11:38)
[2023-04-28 11:40] LABS: BILIRUBIN,TOTAL 0.3 mg/dL (0.2-1); TOT PROT 5.7 g/dl (6.4-8.2)
[2023-04-28 11:57] LABS: ANISOCYTOSIS 2+; MACROCYTOSIS 0; OVALOCYTE 1+
== END 2023-04-28 14:18 | disposition home or self-care (01) | DRG 482 ==
LOC: FER 04:09 → FM/S 08:22 → J2C 04-15 09:15 → J4W 04-15 20:36 → J6S 04-22 15:20
PROVIDERS: ADMIT Internal Medicine; ATTEND Internal Medicine
PROC: 07DR3ZX Extraction of Iliac Bone Marrow, Percutaneous Approach, Diagnostic (ICD-10-PCS; principal; 2023-04-15)
PROC: 0VB08ZZ Excision of Prostate, Via Natural or Artificial Opening Endoscopic (ICD-10-PCS; 2023-04-22)
DX: C61 Malignant neoplasm of prostate (principal); C78.7 Secondary malignant neoplasm of liver and intrahepatic bile duct; C79.51 Secondary malignant neoplasm of bone; C78.00 Secondary malignant neoplasm of unspecified lung; C77.2 Secondary and unspecified malignant neoplasm of intra-abdominal lymph nodes; M51.36 Other intervertebral disc degeneration, lumbar region; E83.52 Hypercalcemia; E78.5 Hyperlipidemia, unspecified; D63.0 Anemia in neoplastic disease; F14.10 Cocaine abuse, uncomplicated; F12.90 Cannabis use, unspecified, uncomplicated; F10.10 Alcohol abuse, uncomplicated; I11.0 Hypertensive heart disease with heart failure; I50.32 Chronic diastolic (congestive) heart failure; N17.9 Acute kidney failure, unspecified; N40.1 Benign prostatic hyperplasia with lower urinary tract symptoms; R33.8 Other retention of urine; M25.551 Pain in right hip; F39 Unspecified mood [affective] disorder; N32.89 Other specified disorders of bladder; R22.1 Localized swelling, mass and lump, neck; K11.20 Sialoadenitis, unspecified; M54.2 Cervicalgia; F17.210 Nicotine dependence, cigarettes, uncomplicated; G89.29 Other chronic pain; R63.4 Abnormal weight loss; Z68.25 Body mass index [BMI] 25.0-25.9, adult
CPT/HCPCS: 0241U-QW; 20220; 36415; 70490-TC; 71045-TC-FY; 71250-TC; 71275-TC; 72131-TC; 73700-TC-RT; 74176-TC; 77012-TC; 80048; 80053; 80307; 81003; 81015; 82306; 82310; 82330; 82378; 82728; 82784; 83540; 83550; 83735; 83880; 83883; 83970; 84100; 84153; 84155; 84165; 85025; 85027; 85045; 85379; 85610; 86301; 87040; 88305-TC; 93005; 93306-TC; 93970-TC; 94760; 97116-GP; 97162-GP; 99285-25; Q9967

== ENCOUNTER 2023-04-30 23:42 | Emergency (ER) | payer OTHER ==
[2023-04-30 23:51] VITALS: BP 130/74; PULSE 102; RESP 18; TEMP 98.8; BMI 27.1
== END 2023-05-01 00:40 | disposition home or self-care (01) ==
LOC: FER 23:42
DX: R25.2 Cramp and spasm (principal)
CPT/HCPCS: 99282-25

== ENCOUNTER 2023-05-16 14:00 | Day surgery (SDC) | payer OTHER ==
[~2023-05-16 14:00] MED LIST: LEUPROLIDE ACETATE (ELIGARD) 22.5 MG SYRINGE SQ ONE
[2023-05-16 17:45] VITALS: BP 129/53; PULSE 104; RESP 18; TEMP 98.9
== END 2023-05-16 14:30 | disposition home or self-care (01) ==
LOC: JONCCHEMO 14:00 → J7W 14:02 → JONCCHEMO 14:30
PROVIDERS: ATTEND Internal Medicine Hematology & Oncology
PROC: 3E013GC Introduction of Other Therapeutic Substance into Subcutaneous Tissue, Percutaneous Approach (ICD-10-PCS; principal; 2023-05-16)
DX: C61 Malignant neoplasm of prostate (principal); Z76.89 Persons encountering health services in other specified circumstances
CPT/HCPCS: 96372; J9217

== ENCOUNTER 2023-07-06 21:08 | Observation (INO) | payer OTHER ==
[2023-07-06 21:16] VITALS: BMI 25.5
[2023-07-06 21:55] LABS: HEMATOCRIT 34.7 % (35.4-49); HEMOGLOBIN 11.6 G/dL (11.7-16.9); MCH 30.3 pg (25.7-33.7); MCHC 33.5 g/dl (32.0-35.9); MEAN CELL VOLUME 90.7 fl (80-96); MEAN PLT VOLUME 7.1 fl (7.5-11.1); PLATELET COUNT 237.9 10^3/uL (134-434); RBC 3.83 10^6/uL (4.00-5.60); RDW 18.2 % (11.9-15.9); WHITE BLOOD COUNT 6.5 10^3/uL (4.0-10.8)
[2023-07-06] MEDS ORDERED: KETOROLAC TROMETHAMINE 30 MG/1 ML VIAL IVPUSH ONE (22:10)
[2023-07-06 22:11] LABS: ALBUMIN 4.3 g/dl (3.4-5.0); BILIRUBIN,TOTAL 1.1 mg/dl (0.2-1); CALCIUM 9.2 mg/dl (8.5-10.1); CREATININE 0.8 mg/dl (0.6-1.3); PHOSPHOROUS 3.4 (2.5-4.9); TOT PROT 6.9 g/dl (6.4-8.2)
[2023-07-06] MEDS ORDERED: KETOROLAC TROMETHAMINE 30 MG/1 ML VIAL ONE (22:13)
[2023-07-06] MEDS ORDERED: VANCOMYCIN 1,000 MG in DEXTROSE 5%-WATER - 250 ML IVPB ONE (22:46)
[2023-07-06] MEDS ORDERED: PIPERACILLIN/TAZOB 3.375 GM 3.375 GM in DEXTROSE 5%-WATER - 50 ML IVPB ONE (22:49)
[2023-07-06] MEDS ORDERED: PIPERACILLIN/TAZOBACTAM 3.375 GM VIAL IVPB ONE (23:12)
[2023-07-06] MEDS ORDERED: VANCOMYCIN 1,000 MG VIAL (RESTRICTED TO ID ONLY) ONE (23:12)
[2023-07-07] MEDS ORDERED: ACETAMINOPHEN 325 MG TABLET (FP) PO PRN (05:13)
[2023-07-07] MEDS: IBUPROFEN 600 MG TABLET (FP) PO PRN ×2 (06:11→17:56)
[2023-07-07] MEDS: ENOXAPARIN NA (PORCINE) 40 MG/0.4 ML DISP.SYRIN SQ SCH (09:42)
[2023-07-07] MEDS: NICOTINE 7 MG/24 HOURS TOPICAL PATCH TD SCH (09:43)
[2023-07-07] MEDS ORDERED: CEFAZOLIN 1 GM in DEXTROSE 5%-WATER - 50 ML IVPB SCH (10:00)
[2023-07-07 10:05] LABS: CALCIUM 8.7 mg/dl (8.5-10.1)
[2023-07-07 10:29] LABS: BASO % 0.5 % (0-2.0); EOS % 0.4 % (0-4.5); HEMATOCRIT 31.8 % (35.4-49); HEMOGLOBIN 10.5 GM/dL (11.7-16.9); LYMPH % 15.8 % (8-40); MCH 29.6 pg (25.7-33.7); MCHC 32.9 g/dl (32.0-35.9); MEAN PLT VOLUME 6.7 fl (7.5-11.1); MONO % 9.5 % (3.8-10.2); NEUT % 73.8 % (42.8-82.8); PLATELET COUNT 233 10^3/uL (134-434); RBC 3.54 M/mm3 (4.00-5.60); RDW 19.4 % (11.9-15.9); WHITE BLOOD COUNT 5.6 K/mm3 (4.0-10.0)
[2023-07-07] MEDS ORDERED: SODIUM CHLORIDE 1,000 ML IV SCH (11:45)
[2023-07-07] MEDS: CHOLECALCIFEROL (VIT D3) 1,000 UNIT (25 MCG) TABLET PO SCH (12:16)
[2023-07-07] MEDS: AMPICILLIN NA/SULBACTAM NA 3 GM in SODIUM CHLORIDE 100 ML IVPB SCH ×2 (14:48→20:17)
[2023-07-07 15:25] LABS: OPIATES, URI NEGATIVE (NEGATIVE)
[2023-07-07 15:26] LABS: METHADONE, UR NEGATIVE (NEGATIVE); PHENCYCLIDINE,URINE NEGATIVE (NEGATIVE); URINE BENZODIAZEPINES NEGATIVE (NEGATIVE)
[2023-07-07 15:29] LABS: COCAINE, UR NEGATIVE (NEGATIVE)
[2023-07-07 15:31] LABS: URINE AMPHETAMINES NEGATIVE (NEGATIVE); URINE BARBITURATES NEGATIVE (NEGATIVE)
[2023-07-08] MEDS ORDERED: traMADol HCL 50 MG TABLET PO ONE (02:01)
[2023-07-08] MEDS: AMPICILLIN NA/SULBACTAM NA 3 GM in SODIUM CHLORIDE 100 ML IVPB SCH ×2 (02:12→10:21)
[2023-07-08] MEDS ORDERED: traMADol HCL 50 MG TABLET PO PRN (09:29)
[2023-07-08 09:56] VITALS: BP 115/50; PULSE 84; RESP 18; TEMP 98.6
[2023-07-08] MEDS: NICOTINE 7 MG/24 HOURS TOPICAL PATCH TD SCH (10:20)
[2023-07-08] MEDS: CHOLECALCIFEROL (VIT D3) 1,000 UNIT (25 MCG) TABLET PO SCH (10:20)
[2023-07-08] MEDS: ENOXAPARIN NA (PORCINE) 40 MG/0.4 ML DISP.SYRIN SQ SCH (10:20)
== END 2023-07-08 12:47 | disposition home or self-care (01) ==
LOC: FER 21:08 → FM/S 23:19 → UNDOADMOB 07-07 00:57
PROVIDERS: ADMIT Internal Medicine
PROC: 3E03329 Introduction of Other Anti-infective into Peripheral Vein, Percutaneous Approach (ICD-10-PCS; principal; 2023-07-06)
PROC: 3E0333Z Introduction of Anti-inflammatory into Peripheral Vein, Percutaneous Approach (ICD-10-PCS; 2023-07-06)
PROC: 3E0337Z Introduction of Electrolytic and Water Balance Substance into Peripheral Vein, Percutaneous Approach (ICD-10-PCS; 2023-07-06)
DX: K11.20 Sialoadenitis, unspecified (principal); N18.9 Chronic kidney disease, unspecified; R80.9 Proteinuria, unspecified; F10.10 Alcohol abuse, uncomplicated; E83.52 Hypercalcemia; R63.4 Abnormal weight loss; C61 Malignant neoplasm of prostate; F19.10 Other psychoactive substance abuse, uncomplicated; Z91.013 Allergy to seafood; Z87.891 Personal history of nicotine dependence
CPT/HCPCS: 36415; 70490-TC; 71045-TC-FY; 80048; 80053; 80307; 81003; 82306; 83605; 83735; 84100; 85025; 85027; 87040; 93005; 96361; 96365; 96367; 96375; 99285-25; G0378

== ENCOUNTER 2023-07-18 09:53 | Emergency (ER) | payer OTHER ==
[2023-07-18 10:18] VITALS: BP 120/71; PULSE 85; RESP 16; TEMP 97.8; BMI 25.5
== END 2023-07-18 11:10 | disposition home or self-care (01) ==
LOC: FER 09:53
DX: F10.929 Alcohol use, unspecified with intoxication, unspecified (principal); Y90.9 Presence of alcohol in blood, level not specified
CPT/HCPCS: 99282-25

== ENCOUNTER 2023-11-02 00:15 | Inpatient (IN) | payer OTHER ==
[2023-11-02] MEDS ORDERED: morphine SULFATE 4 MG/ML VIAL ONE ×2 (00:54→02:49)
[2023-11-02] MEDS: morphine CARPU-JECT 4 MG/1 ML DISP.SYRIN IVPUSH ONE ×2 (01:01→02:52)
[2023-11-02] MEDS: SODIUM CHLORIDE 1,000 ML IV ONE (01:02)
[2023-11-02 01:52] LABS: PH,URINE 5.5 (5.0-8.0); URINE APPEARANCE CLEAR; URINE BILIRUBIN NEGATIVE (NEGATIVE); URINE COLOR YELLOW; URINE GLUCOSE (UA) NEGATIVE (NEGATIVE); URINE KETONE NEGATIVE (NEGATIVE); URINE LEUK ESTERASE NEGATIVE (NEGATIVE); URINE NITRITE NEGATIVE (NEGATIVE); URINE PROTEIN TRACE (NEGATIVE); URINE UROBILINOGEN 0.2 mg/dL (0.2-1.0)
[2023-11-02 02:09] LABS: HEMATOCRIT 33.8 % (35.4-49); HEMOGLOBIN 11.3 GM/dL (11.7-16.9); MCH 28.7 pg (25.7-33.7); MCHC 33.3 g/dl (32.0-35.9); MEAN CELL VOLUME 86.2 fl (80-96); MEAN PLT VOLUME 6.7 fl (7.5-11.1); PLATELET COUNT 316 10^3/uL (134-434); RBC 3.93 M/mm3 (4.00-5.60); RDW 17.3 % (11.9-15.9); WHITE BLOOD COUNT 6.4 K/mm3 (4.0-10.0)
[2023-11-02 03:00] LABS: BLOOD UREA NITROGEN 26.6 mg/dL (7-18); CREATININE 0.9 mg/dL (0.55-1.3); POTASSIUM 4.2 mmol/L (3.5-5.1)
[2023-11-02 03:01] LABS: ALBUMIN 3.4 g/dl (3.4-5.0); BILIRUBIN,TOTAL 0.5 mg/dL (0.2-1); CALCIUM 9.2 mg/dL (8.5-10.1); TOT PROT 6.3 g/dl (6.4-8.2)
[2023-11-02] MEDS ORDERED: ACETAMINOPHEN INJECTION 100 ML IVPB ONE (04:42)
[2023-11-02] MEDS: ACETAMINOPHEN 1000 MG/100 ML BAG IVPB ONE (04:44)
[2023-11-02] MEDS ORDERED: HYDROmorphone HCL/PF 1 MG/ML VIAL ONE (06:50)
[2023-11-02] MEDS ORDERED: cefTRIAXone SODIUM 1 GM VIAL ONE (06:54)
[2023-11-02] MEDS: HYDROmorphone HCl 2 MG/ML VIAL IVPUSH STA (06:56)
[2023-11-02] MEDS ORDERED: AZITHROMYCIN 500 MG VIAL IVPB ONE (06:57)
[2023-11-02] MEDS: CEFTRIAXONE 1,000 MG in DEXTROSE 5%-WATER - 50 ML IVPB ONE (07:02)
[2023-11-02] MEDS: AZITHROMYCIN IVPB 500 MG in DEXTROSE 5%-WATER - 250 ML IVPB ONE (07:36)
[2023-11-02] MEDS ORDERED: HYDROmorphone HCl 2 MG/ML VIAL IVPB PRN (08:18)
[2023-11-02 10:04] VITALS: BMI 25.0
[2023-11-02] MEDS ORDERED: HYDROmorphone HCl 2 MG/ML VIAL ONE (12:28)
[2023-11-02] MEDS: ALPRAZolam 1 MG TABLET PO PRN (12:44)
[2023-11-02] MEDS: HYDROmorphone HCl 2 MG/ML VIAL IVPB PRN (12:44)
[2023-11-02] MEDS ORDERED: PIPERACILLIN/TAZOB 3.375 GM 3.375 GM in DEXTROSE 5%-WATER - 50 ML IVPB SCH ×2 (14:00→18:00)
[2023-11-02] MEDS: PIPERACILLIN/TAZOB 3.375 GM 3.375 GM in DEXTROSE 5%-WATER - 50 ML IVPB SCH ×2 (15:13→19:31)
[2023-11-03] MEDS: ACETAMINOPHEN 1000 MG/100 ML BAG IVPB ONE (01:22)
[2023-11-03 08:58] LABS: ALBUMIN 3.7 g/dl (3.4-5.0); BILIRUBIN,TOTAL 0.6 mg/dl (0.2-1); CALCIUM 9.2 mg/dl (8.5-10.1); CREATININE 1.1 mg/dl (0.6-1.3); MAGNESIUM 1.9 mg/dL (1.8-2.4); POTASSIUM 4.2 mmol/L (3.5-5.1)
[2023-11-03 09:19] LABS: BASO % 0.3 % (0-2.0); EOS % 0.2 % (0-4.5); HEMATOCRIT 31.3 % (35.4-49); HEMOGLOBIN 10.3 GM/dL (11.7-16.9); LYMPH % 13.3 % (8-40); MCH 28.2 pg (25.7-33.7); MCHC 32.9 g/dl (32.0-35.9); MEAN CELL VOLUME 85.8 fl (80-96); MEAN PLT VOLUME 6.8 fl (7.5-11.1); MONO % 12.9 % (3.8-10.2); NEUT % 73.3 % (42.8-82.8); PLATELET COUNT 249 10^3/uL (134-434); RBC 3.65 M/mm3 (4.00-5.60); RDW 17.6 % (11.9-15.9); WHITE BLOOD COUNT 5.8 K/mm3 (4.0-10.0)
[2023-11-03] MEDS: morphine SO4 SUSTAINED ACTING 30 MG TABLET.SA PO PRN (11:07)
[2023-11-03] MEDS: GABAPENTIN 100 MG CAPSULE PO SCH (11:07)
[2023-11-03] MEDS: LIDOCAINE 5% TOPICAL PATCH TP SCH (11:09)
[2023-11-03] MEDS: ACETAMINOPHEN 1000 MG/100 ML BAG IVPB PRN (14:39)
[2023-11-03] MEDS: LIDOCAINE PATCH REMOVAL MC SCH (22:02)
[2023-11-04 03:19] VITALS: RESP 20
[2023-11-04 10:09] VITALS: BP 116/89; PULSE 101; TEMP 99.7
== END 2023-11-04 11:56 | disposition home or self-care (01) | DRG 343 ==
LOC: FER 00:15 → FM/S 08:21
PROVIDERS: ATTEND Internal Medicine
DX: C79.51 Secondary malignant neoplasm of bone (principal); J18.9 Pneumonia, unspecified organism; C61 Malignant neoplasm of prostate; E78.5 Hyperlipidemia, unspecified; M54.50 Low back pain, unspecified; F17.210 Nicotine dependence, cigarettes, uncomplicated
CPT/HCPCS: 0241U-QW; 36415; 71275-TC; 80053; 81003; 82550; 82553; 83735; 84100; 84443; 84484; 85025; 85027; 85379; 87040; 93005; 97116-GP; 97161-GP; 99285-25; J0131; Q9967

== ENCOUNTER 2023-11-04 19:27 | Emergency (ER) | payer OTHER ==
[2023-11-04 19:52] VITALS: RESP 18; BMI 24.9
[2023-11-04] MEDS ORDERED: morphine SULFATE 4 MG/ML VIAL ONE (20:36)
[2023-11-04] MEDS ORDERED: ONDANSETRON 4 MG/2 ML VIAL ONE (20:37)
[2023-11-04] MEDS ORDERED: ACETAMINOPHEN INJECTION 100 ML IVPB ONE (20:37)
[2023-11-04 20:42] LABS: BASO % 0.2 % (0-2.0); EOS % 0.1 % (0-4.5); HEMATOCRIT 25.6 % (35.4-49); HEMOGLOBIN 8.6 GM/dL (11.7-16.9); LYMPH % 8.8 % (8-40); MCH 28.7 pg (25.7-33.7); MCHC 33.7 g/dl (32.0-35.9); MEAN CELL VOLUME 85.3 fl (80-96); MEAN PLT VOLUME 6.5 fl (7.5-11.1); MONO % 10.4 % (3.8-10.2); NEUT % 80.5 % (42.8-82.8); PLATELET COUNT 244 10^3/uL (134-434); RDW 17.4 % (11.9-15.9)
[2023-11-04] MEDS: morphine CARPU-JECT 4 MG/1 ML DISP.SYRIN IVPUSH ONE (20:42)
[2023-11-04] MEDS: ACETAMINOPHEN 1000 MG/100 ML BAG IVPB ONE (20:42)
[2023-11-04] MEDS: ONDANSETRON 4 MG/2 ML VIAL IVPUSH ONE (20:42)
[2023-11-04 21:00] LABS: POTASSIUM 3.9 mmol/L (3.5-5.1)
[2023-11-04 21:01] LABS: CALCIUM 8.8 mg/dL (8.5-10.1)
[2023-11-04 21:02] LABS: ALBUMIN 2.7 g/dl (3.4-5.0); BLOOD UREA NITROGEN 20.6 mg/dL (7-18)
[2023-11-04 21:06] LABS: BILIRUBIN,TOTAL 0.5 mg/dL (0.2-1); TOT PROT 5.7 g/dl (6.4-8.2)
[2023-11-04] MEDS ORDERED: AMOX TR/POT CLAV 875MG/125MG TABLETS (FP) ONE (21:41)
[2023-11-04] MEDS: AMOX TR/POT CLAV 875MG/125MG TABLETS (FP) PO ONE (21:44)
[2023-11-04 21:45] LABS: ANISOCYTOSIS 2+; MACROCYTOSIS 0; OVALOCYTE 1+
[2023-11-04 21:55] VITALS: BP 138/60; PULSE 106; TEMP 99.7
== END 2023-11-04 22:13 | disposition home or self-care (01) ==
LOC: JER 19:27
PROC: 3E030NZ Introduction of Analgesics, Hypnotics, Sedatives into Peripheral Vein, Open Approach (ICD-10-PCS; principal; 2023-11-04)
PROC: 3E030GC Introduction of Other Therapeutic Substance into Peripheral Vein, Open Approach (ICD-10-PCS; 2023-11-04)
PROC: 3E030GC Introduction of Other Therapeutic Substance into Peripheral Vein, Open Approach (ICD-10-PCS; 2023-11-04)
DX: C61 Malignant neoplasm of prostate (principal); C79.51 Secondary malignant neoplasm of bone; G89.3 Neoplasm related pain (acute) (chronic); J18.9 Pneumonia, unspecified organism; R50.9 Fever, unspecified; R11.2 Nausea with vomiting, unspecified; R00.0 Tachycardia, unspecified
CPT/HCPCS: 36415; 80053; 85025; 99284-25; J0131

== ENCOUNTER 2023-11-10 11:25 | Day surgery (SDC) | payer OTHER ==
[2023-11-10] MEDS: LEUPROLIDE ACETATE (ELIGARD) 22.5 MG SYRINGE SQ ONE (12:01)
[2023-11-10 16:06] VITALS: BP 143/76; PULSE 85; RESP 20; TEMP 98.4
== END 2023-11-10 12:30 | disposition home or self-care (01) ==
LOC: JONCCHEMO 11:25 → J7W 11:26 → JONCCHEMO 12:30
PROVIDERS: ATTEND Internal Medicine Hematology & Oncology
DX: Z51.11 Encounter for antineoplastic chemotherapy (principal); C61 Malignant neoplasm of prostate; C79.51 Secondary malignant neoplasm of bone; D64.9 Anemia, unspecified
CPT/HCPCS: 96402; J9217

== ENCOUNTER 2023-12-29 04:11 | Emergency (ER) | payer OTHER ==
[2023-12-29 04:19] VITALS: BP 126/74; PULSE 68; RESP 20; TEMP 98.5; BMI 23.4
[2023-12-29] MEDS ORDERED: morphine SO4 SUSTAINED ACTING 30 MG TABLET.SA PO ONE (04:47)
[2023-12-29] MEDS ORDERED: LIDOCAINE 4% PATCH TP ONE (04:47)
[2023-12-29] MEDS: morphine SO4 SUSTAINED ACTING 100 MG TABLET.SA PO ONE (04:52)
[2023-12-29] MEDS: LIDOCAINE 4% PATCH TP ONE (04:53)
[2023-12-29 05:26] LABS: BASO % 0.6 % (0-2.0); EOS % 2.6 % (0-4.5); LYMPH % 17.4 % (8-40); MCH 29.4 pg (25.7-33.7); MCHC 34.3 g/dl (32.0-35.9); MEAN CELL VOLUME 85.7 fl (80-96); MEAN PLT VOLUME 6.7 fl (7.5-11.1); MONO % 10.9 % (3.8-10.2); NEUT % 68.5 % (42.8-82.8); PLATELET COUNT 270 10^3/uL (134-434); RBC 3.73 M/mm3 (4.00-5.60); RDW 19.9 % (11.9-15.9); WHITE BLOOD COUNT 3.1 K/mm3 (4.0-10.0)
[2023-12-29 05:45] LABS: POTASSIUM 3.7 mmol/L (3.5-5.1)
[2023-12-29 05:47] LABS: CALCIUM 8.8 mg/dL (8.5-10.1)
[2023-12-29 05:48] LABS: ALBUMIN 3.4 g/dl (3.4-5.0); MAGNESIUM 2.3 mg/dL (1.8-2.4)
[2023-12-29 05:51] LABS: CREATININE 0.7 mg/dL (0.55-1.3)
[2023-12-29 05:53] LABS: BILIRUBIN,TOTAL 0.3 mg/dL (0.2-1)
[2023-12-29 06:00] LABS: INR 0.99 (0.83-1.09); PROTHROMBIN TIME (PATIENT) 11.4 SEC (9.7-13.0)
[2023-12-29 06:03] LABS: ACTIVATED PTT 31.6 SECONDS (25.2-36.5)
[2023-12-29] MEDS ORDERED: LIDOCAINE PATCH REMOVAL MC SCH (22:00)
== END 2023-12-29 06:44 | disposition home or self-care (01) ==
LOC: JER 04:11
DX: C61 Malignant neoplasm of prostate (principal); C79.51 Secondary malignant neoplasm of bone; G89.3 Neoplasm related pain (acute) (chronic); R07.81 Pleurodynia
CPT/HCPCS: 36415; 71045-TC-FY; 80053; 83735; 84484; 85025; 85610; 85730; 93005; 93010; 99285-25

== ENCOUNTER 2024-01-08 15:04 | Emergency (ER) | payer OTHER ==
[2024-01-08 15:16] VITALS: BP 134/96; PULSE 108; RESP 18; TEMP 100; BMI 23.6
[2024-01-08] MEDS: SODIUM CHLORIDE 1,000 ML IV STA (15:39)
== END 2024-01-08 17:37 | disposition home or self-care (01) ==
LOC: FER 15:04
PROC: 3E0337Z Introduction of Electrolytic and Water Balance Substance into Peripheral Vein, Percutaneous Approach (ICD-10-PCS; principal; 2024-01-08)
DX: R22.1 Localized swelling, mass and lump, neck (principal); E86.0 Dehydration
CPT/HCPCS: 99284-25

== ENCOUNTER 2024-02-15 20:36 | Emergency (ER) | payer OTHER ==
[2024-02-15 20:52] VITALS: BP 135/80; PULSE 92; RESP 16; TEMP 97.7; BMI 23.3
== END 2024-02-15 22:04 | disposition home or self-care (01) ==
LOC: FER 20:36
DX: S00.93XA Contusion of unspecified part of head, initial encounter (principal); H61.21 Impacted cerumen, right ear; W22.8XXA Striking against or struck by other objects, initial encounter; Y99.0 Civilian activity done for income or pay
CPT/HCPCS: 70450-TC; 93005; 99284-25

== ENCOUNTER 2024-02-17 03:35 | Inpatient (IN) | payer OTHER ==
[2024-02-17] MEDS ORDERED: morphine SULFATE 4 MG/ML VIAL ONE ×2 (04:11→05:03)
[2024-02-17 04:20] LABS: BASO % 0.4 % (0-2.0); EOS % 0.5 % (0-4.5); HEMATOCRIT 32.8 % (35.4-49); HEMOGLOBIN 11.2 GM/dL (11.7-16.9); MEAN CELL VOLUME 85.3 fl (80-96); MONO % 8.2 % (3.8-10.2); NEUT % 80.9 % (42.8-82.8); PLATELET COUNT 328 10^3/uL (134-434); RBC 3.84 M/mm3 (4.00-5.60); RDW 19.2 % (11.9-15.9); WHITE BLOOD COUNT 5.5 K/mm3 (4.0-10.0)
[2024-02-17] MEDS: morphine CARPU-JECT 4 MG/1 ML DISP.SYRIN IVPUSH ONE ×2 (04:21→05:08)
[2024-02-17 04:31] LABS: INR 1.1 (0.83-1.09); PROTHROMBIN TIME (PATIENT) 12.4 SEC (9.7-13.0)
[2024-02-17 04:34] LABS: ACTIVATED PTT 30.2 SECONDS (25.2-36.5)
[2024-02-17 04:42] LABS: POTASSIUM 4.3 mmol/L (3.5-5.1)
[2024-02-17 04:44] LABS: ALBUMIN 3.6 g/dl (3.4-5.0); BLOOD UREA NITROGEN 25.7 mg/dL (7-18); CALCIUM 8.9 mg/dL (8.5-10.1)
[2024-02-17 04:49] LABS: BILIRUBIN,TOTAL 0.4 mg/dL (0.2-1); TOT PROT 6.7 g/dl (6.4-8.2)
[2024-02-17] MEDS ORDERED: HYDROmorphone HCL CARPU-JECT 2 MG/1 ML DISP.SYRIN ONE (07:20)
[2024-02-17] MEDS: HYDROmorphone HCl 2 MG/ML VIAL IVPUSH ONE (07:30)
[2024-02-17] MEDS ORDERED: HYDROmorphone HCL CARPU-JECT 2 MG/1 ML DISP.SYRIN IVPUSH PRN (08:15)
[2024-02-17] MEDS ORDERED: GABAPENTIN 100 MG CAPSULE ONE (08:33)
[2024-02-17] MEDS: GABAPENTIN 100 MG CAPSULE PO SCH (08:35)
[2024-02-17] MEDS ORDERED: APALUTAMIDE 240 MG PO SCH (10:00)
[2024-02-17] MEDS ORDERED: morphine SO4 SUSTAINED ACTING 30 MG TABLET.SA PO ONE (10:22)
[2024-02-17] MEDS ORDERED: DOCUSATE SODIUM 100 MG CAPSULE (FP) PO ONE (10:22)
[2024-02-17] MEDS ORDERED: ENOXAPARIN NA (PORCINE) 40 MG/0.4 ML DISP.SYRIN SQ ONE (10:23)
[2024-02-17] MEDS: DOCUSATE SODIUM 100 MG CAPSULE (FP) PO SCH (10:29)
[2024-02-17] MEDS: ENOXAPARIN NA (PORCINE) 40 MG/0.4 ML DISP.SYRIN SQ SCH (10:29)
[2024-02-17] MEDS: morphine SO4 SUSTAINED ACTING 30 MG TABLET.SA PO SCH (10:30)
[2024-02-17] MEDS: LORazepam 2 MG/ML SDV VIAL IVPUSH ONE (10:44)
[2024-02-17] MEDS ORDERED: CEFTRIAXONE 1 GM/50 ML BAG ONE (11:19)
[2024-02-17] MEDS ORDERED: AZITHROMYCIN IVPB 500 MG/250 ML BAG IVPB ONE (11:19)
[2024-02-17] MEDS ORDERED: ALBUTEROL SO4 2.5/IPRATROPIUM 0.5 INH SOL 3 ML VIAL.NEB. NEB ONE ×2 (11:19→14:28)
[2024-02-17] MEDS: CEFTRIAXONE 1 GM in DEXTROSE 5%-WATER - 50 ML IVPB SCH (11:33)
[2024-02-17] MEDS: ALBUTEROL SO4 2.5/IPRATROPIUM 0.5 INH SOL 3 ML VIAL.NEB. NEB SCH (11:33)
[2024-02-17] MEDS: AZITHROMYCIN IVPB 500 MG/250 ML BAG IVPB SCH (11:33)
[2024-02-17] MEDS: HYDROmorphone HCL CARPU-JECT 2 MG/1 ML DISP.SYRIN IVPUSH PRN (17:02)
[2024-02-18] MEDS: ONDANSETRON 4 MG/2 ML VIAL IVPUSH ONE (02:18)
[2024-02-18] MEDS: POLYETHYLENE GLYCOL (HEALTHYLAX) 3350 17 GM PACKET PO SCH (09:49)
[2024-02-18 13:17] LABS: HEMATOCRIT 30.6 % (35.4-49); HEMOGLOBIN 10.3 GM/dL (11.7-16.9); MCH 28.8 pg (25.7-33.7); MCHC 33.7 g/dl (32.0-35.9); MEAN CELL VOLUME 85.5 fl (80-96); MEAN PLT VOLUME 6.2 fl (7.5-11.1); PLATELET COUNT 269 10^3/uL (134-434); RBC 3.57 M/mm3 (4.00-5.60); RDW 19.2 % (11.9-15.9); WHITE BLOOD COUNT 4.5 K/mm3 (4.0-10.0)
[2024-02-18 13:45] LABS: CALCIUM 9.1 mg/dL (8.5-10.1)
[2024-02-18 13:46] LABS: ALBUMIN 3.3 g/dl (3.4-5.0); BLOOD UREA NITROGEN 19.3 mg/dL (7-18); MAGNESIUM 1.9 mg/dL (1.8-2.4)
[2024-02-18 13:49] LABS: CREATININE 0.8 mg/dL (0.55-1.3); PHOSPHOROUS 3.3 mg/dL (2.5-4.9)
[2024-02-18 13:50] LABS: BILIRUBIN,TOTAL 0.9 mg/dL (0.2-1); TOT PROT 6.3 g/dl (6.4-8.2)
[2024-02-18] MEDS: SODIUM CHLORIDE 500 ML IV STA (15:35)
[2024-02-18] MEDS: ACETAMINOPHEN 325 MG TABLET (FP) PO PRN (19:24)
[2024-02-19 16:19] VITALS: BMI 26.5
[2024-02-19] MEDS: PANTOPRAZOLE SODIUM 40 MG VIAL IVPUSH SCH (17:26)
[2024-02-19] MEDS ORDERED: PIPERACILLIN/TAZOB 3.375 GM 3.375 GM in DEXTROSE 5%-WATER - 50 ML IVPB SCH (19:15)
[2024-02-19] MEDS ORDERED: VANCOMYCIN 1,000 MG in DEXTROSE 5%-WATER - 250 ML IVPB SCH (19:15)
[2024-02-19 19:33] LABS: HEMATOCRIT 29.4 % (35.4-49); HEMOGLOBIN 10.1 GM/dL (11.7-16.9); MCH 29.1 pg (25.7-33.7); MCHC 34.2 g/dl (32.0-35.9); MEAN CELL VOLUME 85.3 fl (80-96); MEAN PLT VOLUME 6.1 fl (7.5-11.1); PLATELET COUNT 245 10^3/uL (134-434); RBC 3.45 M/mm3 (4.00-5.60); RDW 18.6 % (11.9-15.9); WHITE BLOOD COUNT 6.2 K/mm3 (4.0-10.0)
[2024-02-19 20:00] LABS: POTASSIUM 3.7 mmol/L (3.5-5.1)
[2024-02-19 20:03] LABS: ALBUMIN 3.1 g/dl (3.4-5.0); BLOOD UREA NITROGEN 18.2 mg/dL (7-18); CALCIUM 8.9 mg/dL (8.5-10.1)
[2024-02-19 20:07] LABS: CREATININE 0.9 mg/dL (0.55-1.3)
[2024-02-19 20:08] LABS: BILIRUBIN,TOTAL 0.7 mg/dL (0.2-1); TOT PROT 6.1 g/dl (6.4-8.2)
[2024-02-19] MEDS: PIPERACILLIN/TAZOB 3.375 GM 3.375 GM in DEXTROSE 5%-WATER - 50 ML IVPB SCH (20:22)
[2024-02-19 20:56] LABS: ANISOCYTOSIS 0; MACROCYTOSIS 0
[2024-02-19] MEDS: VANCOMYCIN/WATER FOR INJ (PEG) 1,000 MG/200 ML BAG IVPB SCH (21:29)
[2024-02-19] MEDS: DEXAMETHASONE SOD PHOSPHATE 4 MG/1 ML VIAL IVPUSH SCH (21:29)
[2024-02-19 23:22] LABS: EPI CELLS 5 /uL (0-25.1); HYALINE CASTS 1 /uL (0-3.1); PH,URINE 5.5 (5.0-8.0); URINE APPEARANCE TURBID; URINE BACTERIA 1 /uL (0-1359); URINE BILIRUBIN NEGATIVE (NEGATIVE); URINE COLOR YELLOW; URINE GLUCOSE (UA) NEGATIVE (NEGATIVE); URINE KETONE 1+ (NEGATIVE); URINE LEUK ESTERASE NEGATIVE (NEGATIVE); URINE NITRITE NEGATIVE (NEGATIVE); URINE PROTEIN 2+ (NEGATIVE); URINE RBC 16 /uL (0-23.9); URINE UROBILINOGEN 0.2 mg/dL (0.2-1.0); URINE WBC 12 /uL (0-25.8)
[2024-02-20] MEDS ORDERED: PIPERACILLIN/TAZOBACTAM 3.375 GM VIAL IVPB ONE (02:49)
[2024-02-20] MEDS: KETOROLAC TROMETHAMINE 30 MG/1 ML VIAL IVPUSH PRN (02:52)
[2024-02-20] MEDS: BISACODYL 5 MG TABLET.DR (FP) PO PRN (03:01)
[2024-02-20] MEDS: HYDROmorphone HCL CARPU-JECT 2 MG/1 ML DISP.SYRIN IVPUSH ONE (10:47)
[2024-02-20] MEDS: ACETAMINOPHEN 1000 MG/100 ML BAG IVPB SCH (14:46)
[2024-02-20] MEDS: GABAPENTIN 300 MG CAPSULE PO SCH (14:47)
[2024-02-20] MEDS: PIPERACILLIN/TAZOB 3.375 GM 3.375 GM in DEXTROSE 5%-WATER - 50 ML IVPB SCH (18:02)
[2024-02-23 06:59] VITALS: BP 125/76; PULSE 94; RESP 18; TEMP 98.2
[2024-02-23 10:49] LABS: HEMATOCRIT 31.5 % (35.4-49); HEMOGLOBIN 10.6 GM/dL (11.7-16.9); MCHC 33.8 g/dl (32.0-35.9); MEAN CELL VOLUME 85.9 fl (80-96); MEAN PLT VOLUME 6.5 fl (7.5-11.1); PLATELET COUNT 349 10^3/uL (134-434); RBC 3.66 M/mm3 (4.00-5.60); RDW 18.9 % (11.9-15.9); WHITE BLOOD COUNT 6.8 K/mm3 (4.0-10.0)
[2024-02-23 11:03] LABS: POTASSIUM 4.5 mmol/L (3.5-5.1)
[2024-02-23 11:09] LABS: CALCIUM 9.4 mg/dL (8.5-10.1)
[2024-02-23 11:10] LABS: ALBUMIN 3.3 g/dl (3.4-5.0)
[2024-02-23 11:13] LABS: CREATININE 0.8 mg/dL (0.55-1.3)
[2024-02-23 11:14] LABS: BILIRUBIN,TOTAL 0.2 mg/dL (0.2-1); TOT PROT 6.9 g/dl (6.4-8.2)
[2024-02-23 11:22] LABS: ANISOCYTOSIS 0; MACROCYTOSIS 0
== END 2024-02-23 13:45 | disposition home or self-care (01) | DRG 343 ==
LOC: JER 03:35 → JERBED 06:38 → J5S 15:26
PROVIDERS: ADMIT Internal Medicine
DX: C79.51 Secondary malignant neoplasm of bone (principal); C61 Malignant neoplasm of prostate; E78.5 Hyperlipidemia, unspecified; J98.11 Atelectasis; C77.9 Secondary and unspecified malignant neoplasm of lymph node, unspecified; D64.9 Anemia, unspecified; R07.89 Other chest pain; M54.16 Radiculopathy, lumbar region; R22.1 Localized swelling, mass and lump, neck; G89.3 Neoplasm related pain (acute) (chronic); F39 Unspecified mood [affective] disorder; J44.9 Chronic obstructive pulmonary disease, unspecified; F19.20 Other psychoactive substance dependence, uncomplicated; G95.29 Other cord compression
CPT/HCPCS: 36415; 70450-TC; 71275-TC; 72146-TC; 80053; 81003; 83605; 83735; 84100; 84484; 85025; 85027; 85610; 85730; 87040; 87070; 87086; 87205; 87899; 93005; 93010; 93306-TC; 94010; 94640; 99285-25; J0131; Q9967

== ENCOUNTER 2024-02-23 17:31 | Observation (INO) | payer OTHER ==
[2024-02-23] MEDS ORDERED: HYDROmorphone HCL CARPU-JECT 2 MG/1 ML DISP.SYRIN ONE (19:39)
[2024-02-23] MEDS: HYDROmorphone HCl 2 MG/ML VIAL IVPUSH ONE (20:00)
[2024-02-23] MEDS ORDERED: MORPHINE SULFATE 2 MG/ML SYRINGE ONE (22:28)
[2024-02-23] MEDS: MORPHINE SULFATE 2 MG/ML SYRINGE IVPUSH ONE (22:41)
[2024-02-24] MEDS ORDERED: HYDROmorphone HCL CARPU-JECT 2 MG/1 ML DISP.SYRIN ONE ×2 (01:19→05:26)
[2024-02-24] MEDS: HYDROmorphone HCl 2 MG/ML VIAL IVPUSH ONE (01:30)
[2024-02-24] MEDS: HYDROmorphone HCL CARPU-JECT 2 MG/1 ML DISP.SYRIN IVPUSH ONE (01:52)
[2024-02-24] MEDS: HYDROmorphone HCL CARPU-JECT 2 MG/1 ML DISP.SYRIN IVPUSH PRN ×2 (05:35→08:29)
[2024-02-24] MEDS ORDERED: GABAPENTIN 100 MG CAPSULE ONE (06:04)
[2024-02-24] MEDS: GABAPENTIN 100 MG CAPSULE PO SCH ×2 (06:13→13:17)
[2024-02-24] MEDS ORDERED: ACETAMINOPHEN 325 MG TABLET (FP) PO PRN (06:18)
[2024-02-24 06:41] LABS: HEMATOCRIT 27.8 % (35.4-49); HEMOGLOBIN 9.4 GM/dL (11.7-16.9); MCH 29.3 pg (25.7-33.7); MCHC 33.8 g/dl (32.0-35.9); MEAN CELL VOLUME 86.6 fl (80-96); MEAN PLT VOLUME 6.4 fl (7.5-11.1); PLATELET COUNT 294 10^3/uL (134-434); RBC 3.21 M/mm3 (4.00-5.60); RDW 18.6 % (11.9-15.9)
[2024-02-24 07:02] LABS: POTASSIUM 5.3 mmol/L (3.5-5.1)
[2024-02-24 07:05] LABS: CALCIUM 9.4 mg/dL (8.5-10.1)
[2024-02-24 07:06] LABS: ALBUMIN 3.2 g/dl (3.4-5.0)
[2024-02-24 07:08] LABS: PHOSPHOROUS 3.8 mg/dL (2.5-4.9)
[2024-02-24 07:10] LABS: BILIRUBIN,TOTAL 0.5 mg/dL (0.2-1); TOT PROT 6.4 g/dl (6.4-8.2)
[2024-02-24] MEDS ORDERED: HYDROmorphone HCL 2 MG TABLET PO PRN (07:22)
[2024-02-24] MEDS: ACETAMINOPHEN 500 MG TABLET (FP) PO SCH (08:31)
[2024-02-24 08:40] LABS: ANISOCYTOSIS 3+; MACROCYTOSIS 0; OVALOCYTE 1+
[2024-02-24] MEDS: predniSONE 10 MG TABLET (UD) PO ONE (09:16)
[2024-02-24] MEDS: POLYETHYLENE GLYCOL (HEALTHYLAX) 3350 17 GM PACKET PO SCH (09:17)
[2024-02-24] MEDS: ENOXAPARIN NA (PORCINE) 40 MG/0.4 ML DISP.SYRIN SQ SCH (09:17)
[2024-02-24] MEDS ORDERED: FENTANYL PATCH WASTE TD PRN (09:30)
[2024-02-24] MEDS ORDERED: predniSONE 20 MG TABLET (UD) PO SCH (10:00)
[2024-02-24] MEDS ORDERED: APALUTAMIDE 240 MG PO SCH (10:00)
[2024-02-24] MEDS: fentaNYL 25mcg/hr PATCH.TD72 TD SCH (10:01)
[2024-02-24] MEDS: LIDOCAINE 5% TOPICAL PATCH TP SCH (10:06)
[2024-02-24 11:07] VITALS: RESP 18; BMI 23.9
[2024-02-24] MEDS: HYDROmorphone HCL 2 MG TABLET PO PRN (20:22)
[2024-02-24] MEDS: DOCUSATE SODIUM 100 MG CAPSULE (FP) PO SCH (23:45)
[2024-02-24] MEDS: LIDOCAINE PATCH REMOVAL MC SCH (23:50)
[2024-02-25] MEDS: HYDROmorphone HCL 2 MG TABLET PO PRN (09:12)
[2024-02-25] MEDS: predniSONE 10 MG TABLET (UD) PO ONE (09:13)
[2024-02-25 11:28] VITALS: BP 108/70; PULSE 90; TEMP 98.3
[2024-02-26] MEDS ORDERED: predniSONE 10 MG TABLET (UD) PO ONE (10:00)
[2024-02-27] MEDS ORDERED: predniSONE 10 MG TABLET (UD) PO ONE (10:00)
== END 2024-02-25 12:16 | disposition home or self-care (01) ==
LOC: JER 17:31 → UNDOADMOB 02-24 03:14 → INTOOBSV 02-24 03:14 → JERBED 02-24 03:14 → J6S 02-24 08:08 → JERBED 02-24 13:57 → J6S 02-24 13:57
PROVIDERS: ADMIT Internal Medicine; ATTEND Nurse Practitioner Acute Care
PROC: 3E023GC Introduction of Other Therapeutic Substance into Muscle, Percutaneous Approach (ICD-10-PCS; principal; 2024-02-24)
PROC: 3E033NZ Introduction of Analgesics, Hypnotics, Sedatives into Peripheral Vein, Percutaneous Approach (ICD-10-PCS; 2024-02-24)
DX: C61 Malignant neoplasm of prostate (principal); C79.51 Secondary malignant neoplasm of bone; E83.52 Hypercalcemia; Z29.89 Encounter for other specified prophylactic measures; E78.5 Hyperlipidemia, unspecified; Z87.891 Personal history of nicotine dependence; Z91.013 Allergy to seafood
CPT/HCPCS: 36415; 80053; 83735; 84100; 85025; 96372; 96374; 96375; 96376; 99285-25; G0378

== ENCOUNTER 2024-02-29 07:59 | Emergency (ER) | payer OTHER ==
[2024-02-29 08:28] VITALS: BP 121/64; PULSE 99; RESP 20; TEMP 99.1; BMI 52.2
[2024-02-29] MEDS ORDERED: HYDROmorphone HCL/PF 1 MG/ML VIAL ONE ×2 (08:30→13:42)
[2024-02-29] MEDS: HYDROmorphone HCl 2 MG/ML VIAL IVPUSH ONE ×2 (08:39→13:47)
[2024-02-29] MEDS: SODIUM CHLORIDE 1,000 ML IV STA (08:40)
[2024-02-29 08:51] LABS: HEMATOCRIT 29.7 % (35.4-49); HEMOGLOBIN 9.4 G/dL (11.7-16.9); MCH 27.3 pg (25.7-33.7); MCHC 31.5 g/dl (32.0-35.9); MEAN CELL VOLUME 86.8 fl (80-96); MEAN PLT VOLUME 7.5 fl (7.5-11.1); RBC 3.42 10^6/uL (4.00-5.60); RDW 18.4 % (11.9-15.9); WHITE BLOOD COUNT 5.1 10^3/uL (4.0-10.8)
[2024-02-29 09:09] LABS: PLATELET ESTIMATE ADEQUATE
[2024-02-29 09:33] LABS: ALBUMIN 3.5 g/dl (3.4-5.0); BILIRUBIN,TOTAL 0.4 mg/dl (0.2-1); CALCIUM 8.5 mg/dl (8.5-10.1); POTASSIUM 4.3 mmol/L (3.5-5.1)
[2024-02-29 09:58] LABS: CREATININE 0.9 mg/dl (0.6-1.3)
== END 2024-02-29 14:20 | disposition home or self-care (01) ==
LOC: FER 07:59
PROC: 3E033NZ Introduction of Analgesics, Hypnotics, Sedatives into Peripheral Vein, Percutaneous Approach (ICD-10-PCS; principal; 2024-02-29)
PROC: 3E033NZ Introduction of Analgesics, Hypnotics, Sedatives into Peripheral Vein, Percutaneous Approach (ICD-10-PCS; 2024-02-29)
PROC: 3E0337Z Introduction of Electrolytic and Water Balance Substance into Peripheral Vein, Percutaneous Approach (ICD-10-PCS; 2024-02-29)
DX: M54.50 Low back pain, unspecified (principal); M89.9 Disorder of bone, unspecified
CPT/HCPCS: 36415; 80053; 85027; 99284-25

== ENCOUNTER 2024-03-01 10:20 | Observation (INO) | payer OTHER ==
[2024-03-01] MEDS ORDERED: HYDROmorphone HCL/PF 1 MG/ML VIAL ONE (11:18)
[2024-03-01] MEDS ORDERED: ACETAMINOPHEN INJECTION 100 ML ONE (11:18)
[2024-03-01] MEDS: HYDROmorphone HCl 2 MG/ML VIAL IVPB ONE (11:28)
[2024-03-01] MEDS: ACETAMINOPHEN 1000 MG/100 ML BAG IVPB ONE (11:28)
[2024-03-01 11:33] LABS: HEMATOCRIT 29.2 % (35.4-49); HEMOGLOBIN 9.2 G/dL (11.7-16.9); MCH 27.7 pg (25.7-33.7); MCHC 31.6 g/dl (32.0-35.9); MEAN CELL VOLUME 87.3 fl (80-96); MEAN PLT VOLUME 7.4 fl (7.5-11.1); PLATELET COUNT 312.5 10^3/uL (134-434); RBC 3.34 10^6/uL (4.00-5.60); RDW 17.6 % (11.9-15.9)
[2024-03-01 11:48] LABS: ALBUMIN 3.4 g/dl (3.4-5.0); ALK PHOS 255 U/L (45-117); ANION GAP 9 mmol/L (4-13); BILIRUBIN,TOTAL 0.4 mg/dl (0.2-1); CALCIUM 8.7 mg/dl (8.5-10.1); CHLORIDE 104 mmol/L (98-107); CO2 25 mmol/L (21-32); CREATININE 0.8 mg/dl (0.6-1.3); GLUCOSE,RANDOM 123 mg/dl (74-106); POTASSIUM 4.4 mmol/L (3.5-5.1); SGOT/AST 12 U/L (15-37); SGPT/ALT 9 U/L (7-52); SODIUM 138 mmol/L (136-145); TOT PROT 6.1 g/dl (6.4-8.2)
[2024-03-01 12:09] LABS: PLATELET ESTIMATE ADEQUATE
[2024-03-01] MEDS ORDERED: POLYETHYLENE GLYCOL (HEALTHYLAX) 3350 17 GM PACKET PO PRN (12:47)
[2024-03-01] MEDS ORDERED: PANTOPRAZOLE 40 MG TABLET PO ONE (13:36)
[2024-03-01] MEDS ORDERED: GABAPENTIN 300 MG CAPSULE ONE (13:36)
[2024-03-01] MEDS ORDERED: HYDROmorphone HCL 2 MG TABLET ONE (13:52)
[2024-03-01] MEDS: methylPREDNISolone 4 MG TABLET PO ONE (13:58)
[2024-03-01] MEDS: HYDROmorphone HCL 2 MG TABLET PO PRN (13:58)
[2024-03-01] MEDS: GABAPENTIN 300 MG CAPSULE PO SCH (13:58)
[2024-03-01] MEDS: PANTOPRAZOLE 40 MG TABLET PO SCH (13:58)
[2024-03-01] MEDS ORDERED: GABAPENTIN 100 MG CAPSULE PO SCH (14:00)
[2024-03-01 14:41] VITALS: BMI 22.8
[2024-03-01] MEDS: LIDOCAINE 5% TOPICAL PATCH TP SCH (15:03)
[2024-03-01] MEDS: ACETAMINOPHEN 500 MG TABLET (FP) PO SCH (19:35)
[2024-03-01] MEDS: DOCUSATE SODIUM 100 MG CAPSULE (FP) PO SCH (21:05)
[2024-03-01] MEDS: LIDOCAINE PATCH REMOVAL MC SCH (21:22)
[2024-03-01] MEDS ORDERED: FENTANYL PATCH WASTE TD PRN (23:31)
[2024-03-02] MEDS: fentaNYL 25mcg/hr PATCH.TD72 TD SCH (00:11)
[2024-03-02] MEDS: ACETAMINOPHEN 1000 MG/100 ML BAG IVPB ONE (01:50)
[2024-03-02 08:30] LABS: HEMATOCRIT 30.5 % (35.4-49); HEMOGLOBIN 10.2 GM/dL (11.7-16.9); MCH 28.4 pg (25.7-33.7); MCHC 33.3 g/dl (32.0-35.9); MEAN CELL VOLUME 85.5 fl (80-96); MEAN PLT VOLUME 6.7 fl (7.5-11.1); PLATELET COUNT 399 10^3/uL (134-434); RBC 3.57 M/mm3 (4.00-5.60); RDW 18.1 % (11.9-15.9); WHITE BLOOD COUNT 5.2 K/mm3 (4.0-10.0)
[2024-03-02 08:47] LABS: CALCIUM 8.8 mg/dl (8.5-10.1); CREATININE 0.8 mg/dl (0.6-1.3); POTASSIUM 4.3 mmol/L (3.5-5.1)
[2024-03-02] MEDS: methylPREDNISolone 4 MG TABLET PO ONE (09:44)
[2024-03-02 09:45] LABS: ANISOCYTOSIS 0; HELMET CELLS 0; HOWELL-JOLLY BODIES 0; MACROCYTOSIS 0; OVALOCYTE 0; ROULEAU 0; SICKELED CELLS 0; TARGET CELLS 0; TEAR DROP CELLS 0; TOXIC GRANULATION 0
[2024-03-02] MEDS: HYDROmorphone HCl 2 MG/ML VIAL IVPB SCH (12:14)
[2024-03-04 09:47] VITALS: BP 127/64; PULSE 80; RESP 18; TEMP 98.6
== END 2024-03-04 12:59 | disposition home or self-care (01) ==
LOC: FER 10:20 → FM/S 12:47
PROVIDERS: ADMIT Internal Medicine
PROC: 3E033NZ Introduction of Analgesics, Hypnotics, Sedatives into Peripheral Vein, Percutaneous Approach (ICD-10-PCS; principal; 2024-03-01)
DX: C61 Malignant neoplasm of prostate (principal); M54.6 Pain in thoracic spine; G89.3 Neoplasm related pain (acute) (chronic); C79.51 Secondary malignant neoplasm of bone; R07.81 Pleurodynia; Z71.89 Other specified counseling; M54.16 Radiculopathy, lumbar region; R22.1 Localized swelling, mass and lump, neck; R97.20 Elevated prostate specific antigen [PSA]; M89.9 Disorder of bone, unspecified; Z87.891 Personal history of nicotine dependence; Z91.013 Allergy to seafood
CPT/HCPCS: 36415; 80048; 80053; 85025; 96374; 96375; 96376; 97116-GP; 97162-GP; 99285-25; G0378; J0131

== ENCOUNTER 2024-03-05 01:15 | Observation (INO) | payer OTHER ==
[2024-03-05] MEDS ORDERED: HYDROmorphone HCL/PF 1 MG/ML VIAL ONE (01:46)
[2024-03-05] MEDS: HYDROmorphone HCl 2 MG/ML VIAL IVPB STA (01:48)
[2024-03-05 02:44] LABS: HEMATOCRIT 27.1 % (35.4-49); HEMOGLOBIN 8.9 GM/dL (11.7-16.9); MCH 28.1 pg (25.7-33.7); MCHC 32.7 g/dl (32.0-35.9); MEAN CELL VOLUME 85.9 fl (80-96); MEAN PLT VOLUME 6.7 fl (7.5-11.1); PLATELET COUNT 378 10^3/uL (134-434); RBC 3.15 M/mm3 (4.00-5.60); RDW 18.7 % (11.9-15.9); WHITE BLOOD COUNT 5.8 K/mm3 (4.0-10.0)
[2024-03-05 03:03] LABS: POTASSIUM 4.8 mmol/L (3.5-5.1)
[2024-03-05 03:05] LABS: CALCIUM 8.7 mg/dL (8.5-10.1)
[2024-03-05 03:06] LABS: ALBUMIN 2.9 g/dl (3.4-5.0); BLOOD UREA NITROGEN 29.3 mg/dL (7-18)
[2024-03-05 03:08] LABS: CREATININE 0.7 mg/dL (0.55-1.3)
[2024-03-05 03:10] LABS: BILIRUBIN,TOTAL 0.3 mg/dL (0.2-1); TOT PROT 6.3 g/dl (6.4-8.2)
[2024-03-05] MEDS: ACETAMINOPHEN 1000 MG/100 ML BAG IVPB ONE (03:48)
[2024-03-05] MEDS: HYDROmorphone HCl 2 MG/ML VIAL IVPB PRN ×2 (06:17→10:09)
[2024-03-05 06:45] VITALS: BMI 23.1
[2024-03-05] MEDS: GABAPENTIN 300 MG CAPSULE PO SCH (08:02)
[2024-03-05] MEDS ORDERED: HYDROmorphone HCl 2 MG/ML VIAL IVPB PRN (09:45)
[2024-03-05] MEDS: ENOXAPARIN NA (PORCINE) 40 MG/0.4 ML DISP.SYRIN SQ SCH (10:07)
[2024-03-05] MEDS: LIDOCAINE 5% TOPICAL PATCH TP SCH (10:07)
[2024-03-05] MEDS: ACETAMINOPHEN 1000 MG/100 ML BAG IVPB PRN (12:44)
[2024-03-05] MEDS ORDERED: guaiFENesin 200 MG/10 ML 10 ML UNIT-DOSE CUPS PO PRN (13:03)
[2024-03-05] MEDS: LIDOCAINE PATCH REMOVAL MC SCH (21:27)
[2024-03-06 09:12] LABS: ALBUMIN 3.5 g/dl (3.4-5.0); BILIRUBIN,TOTAL 0.3 mg/dl (0.2-1); CALCIUM 8.8 mg/dl (8.5-10.1); CREATININE 0.8 mg/dl (0.6-1.3); POTASSIUM 4.4 mmol/L (3.5-5.1); TOT PROT 5.9 g/dl (6.4-8.2)
[2024-03-06 13:15] LABS: HEMATOCRIT 25.2 % (35.4-49); HEMOGLOBIN 8.1 GM/dL (11.7-16.9); MCHC 32.2 g/dl (32.0-35.9); MEAN CELL VOLUME 86.7 fl (80-96); MEAN PLT VOLUME 6.7 fl (7.5-11.1); PLATELET COUNT 323 10^3/uL (134-434); RDW 19.2 % (11.9-15.9); WHITE BLOOD COUNT 4.9 K/mm3 (4.0-10.0)
[2024-03-06 13:48] LABS: ANISOCYTOSIS 0; HELMET CELLS 0; HOWELL-JOLLY BODIES 0; MACROCYTOSIS 0; OVALOCYTE 0; ROULEAU 0; SICKELED CELLS 0; TARGET CELLS 0; TEAR DROP CELLS 0; TOXIC GRANULATION 0
[2024-03-06] MEDS: ACETAMINOPHEN 1000 MG/100 ML BAG IVPB PRN (20:21)
[2024-03-07] MEDS: HYDROmorphone HCL/PF 1 MG/ML VIAL IVPB PRN (04:39)
[2024-03-07 10:24] LABS: ALBUMIN 3.6 g/dl (3.4-5.0); BILIRUBIN,TOTAL 0.3 mg/dl (0.2-1); CALCIUM 8.9 mg/dl (8.5-10.1); CREATININE 0.7 mg/dl (0.6-1.3); POTASSIUM 4.4 mmol/L (3.5-5.1); TOT PROT 6.1 g/dl (6.4-8.2)
[2024-03-07 13:02] LABS: HEMATOCRIT 23.9 % (35.4-49); HEMOGLOBIN 7.8 GM/dL (11.7-16.9); MCH 28.1 pg (25.7-33.7); MCHC 32.6 g/dl (32.0-35.9); MEAN CELL VOLUME 86.4 fl (80-96); MEAN PLT VOLUME 6.6 fl (7.5-11.1); PLATELET COUNT 361 10^3/uL (134-434); RBC 2.76 M/mm3 (4.00-5.60); RDW 19.5 % (11.9-15.9); WHITE BLOOD COUNT 5.2 K/mm3 (4.0-10.0)
[2024-03-07 13:37] LABS: ANISOCYTOSIS 2+; MACROCYTOSIS 0; OVALOCYTE 1+
[2024-03-07] MEDS: HYDROmorphone HCl 2 MG/ML VIAL IVPB PRN (22:30)
[2024-03-08] MEDS ORDERED: HYDROmorphone HCl 2 MG/ML VIAL ONE (10:30)
[2024-03-09 05:52] VITALS: BP 100/64; PULSE 81; RESP 18; TEMP 98
[2024-03-09] MEDS ORDERED: FENTANYL PATCH WASTE TD PRN (07:34)
[2024-03-09 08:45] LABS: BILIRUBIN,TOTAL 0.4 mg/dl (0.2-1); CALCIUM 9.6 mg/dl (8.5-10.1); CREATININE 0.8 mg/dl (0.6-1.3); POTASSIUM 4.6 mmol/L (3.5-5.1)
[2024-03-09 08:47] LABS: HEMATOCRIT 30.3 % (35.4-49); MCH 28.6 pg (25.7-33.7); MCHC 33.1 g/dl (32.0-35.9); MEAN CELL VOLUME 86.2 fl (80-96); MEAN PLT VOLUME 6.7 fl (7.5-11.1); PLATELET COUNT 346 10^3/uL (134-434); RBC 3.52 M/mm3 (4.00-5.60); RDW 18.5 % (11.9-15.9)
[2024-03-09] MEDS: fentaNYL 25mcg/hr PATCH.TD72 TD SCH (09:38)
[2024-03-09] MEDS: ACETAMINOPHEN 500 MG TABLET (FP) PO SCH (09:39)
[2024-03-09] MEDS ORDERED: POLYETHYLENE GLYCOL (HEALTHYLAX) 3350 17 GM PACKET PO SCH (10:00)
== END 2024-03-09 09:48 | disposition home or self-care (01) ==
LOC: FER 01:15 → UNDOADMOB 01:43 → FM/S 01:43 → UNDOADMOB 02:10 → FM/S 02:10
PROVIDERS: ADMIT Internal Medicine; ATTEND Internal Medicine
PROC: 3E033NZ Introduction of Analgesics, Hypnotics, Sedatives into Peripheral Vein, Percutaneous Approach (ICD-10-PCS; principal; 2024-03-05)
PROC: 3E023GC Introduction of Other Therapeutic Substance into Muscle, Percutaneous Approach (ICD-10-PCS; 2024-03-05)
DX: M54.9 Dorsalgia, unspecified (principal); C61 Malignant neoplasm of prostate; C79.51 Secondary malignant neoplasm of bone; N18.9 Chronic kidney disease, unspecified; F10.10 Alcohol abuse, uncomplicated; E78.5 Hyperlipidemia, unspecified; R07.9 Chest pain, unspecified; F39 Unspecified mood [affective] disorder; D64.9 Anemia, unspecified; R79.89 Other specified abnormal findings of blood chemistry; Z87.891 Personal history of nicotine dependence; R63.4 Abnormal weight loss; Z91.013 Allergy to seafood
CPT/HCPCS: 36415; 80053; 84484; 85025; 85027; 93005; 96372; 96374; 96375; 96376; 99285-25; G0378; J0131